=== PATIENT | female | born 1960 | race Caucasian/White ===

== ENCOUNTER 2020-02-08 15:17 | Outpatient (CLI) | payer OTHER, SELFPAY ==
[2020-02-08 16:13] LABS: Hematocrit 39.2 % (37.0-47.0); Hemoglobin 12.9 g/dL (12.0-15.0); Mean Corpuscular HGB Conc 32.9 g/dl (32-36); Mean Corpuscular Hemoglobin 30.5 pg (26-34); Mean Corpuscular Volume 92.7 fl (80-100); Platelet Count Result 392 k/mm3 (150-375); Red Blood Count 4.23 M/mm3 (4.2-5.4); Red Cell Distribution Width 12.8 % (11.5-14.5)
[2020-02-08 16:18] LABS: Add Urine Microscopic? YES; Appearance Urine Clear (Clear); Bilirubin Urine Negative (Negative); Blood Urine 1+ (Negative); Color Urine Straw (Yellow); Glucose Urine UA Negative (Negative); Ketones Urine Negative (Negative); Leukocyte Esterase Ur Negative LEU/UL (Negative); Nitrate Urine Negative (Negative); Protein Urine Negative (Negative); RBC Urine 0-2 /hpf (0-2); Squamous Epithelial Cell Urine Rare /hpf (Few); Urobilinogen Urine Negative mg/dL (<2.0); WBC Urine 0-3 /hpf
[2020-02-08 16:27] LABS: Alanine Aminotransferase 20 U/L (4-35); Albumin Level 4.6 g/dL (3.5-5.1); Alkaline Phosphatase 84 U/L (38-126); Aspartate Amino Transferase 30 U/L (14-36); Bilirubin,Total 1.1 mg/dL (0.2-1.3); Blood Urea Nitrogen 15 mg/dL (7-17); CRP < 0.5 mg/dL (<1.0); Calcium 9.1 mg/dL (8.4-10.2); Carbon Dioxide 28 mmol/L (22-30); Chloride 101 mmol/L (98-107); Estimated Glomerular Filt Rate > 60; Glucose 91 mg/dL (65-105); Potassium 3.3 mmol/L (3.4-5.0); Sodium 136 mmol/L (137-145)
[2020-02-08 17:15] LABS: Erythrocyte Sedimentation Rate 62 mm/hr (0-20)
[2020-02-11 23:06] LABS: NIL 0.04 IU/mL; Quantiferon TB Plus, 1T NEGATIVE (NEGATIVE); TB1-NIL 0.02 IU/mL; TB2-NIL 0.03 IU/mL
== END 2020-02-08 15:18 | disposition home or self-care (01) ==
PROVIDERS: PCP Internal Medicine; Visit Provider Internal Medicine
DX: L40.50 Arthropathic psoriasis, unspecified (principal); M19.90 Unspecified osteoarthritis, unspecified site
CPT/HCPCS: 36415; 80053; 81001; 85027; 85652; 86140; 86480

== ENCOUNTER 2020-02-15 10:13 | Outpatient (CLI) | payer OTHER, SELFPAY ==
--- NOTE | 2020-02-15 11:29 | ECG_ITS ---
Measurements Intervals [place] Rate: 75 P: 40 RI: 150 QRS: -11 QRSD: 98 T: 25 QT: 391 QTc: 439 Interpretive Statements SINUS RHYTHM DELAYED PRECORDIAL R/S TRANSITION BASELINE ARTIFACT- I, III, AVR, AVL, AVF, V5-V6 BORDERLINE ECG Electronically Signed On 02-15-2020 12:03:03 CDT by Joselito Franco D.O.
[2020-02-15 12:22] LABS: Basophils Absolute Auto 0.1 K/mm3 (0.0-0.1); Basophils Percent Auto 0.9 % (0.2-1.2); Eosinophils Absolute Auto 0.1 K/mm3 (0-0.3); Eosinophils Percent Auto 1.5 % (0-4.4); Hematocrit 40.7 % (37.0-47.0); Hemoglobin 13.3 g/dL (12.0-15.0); Immature Granulocyte Absolute 0.02 K/mm3 (0.00-0.031); Immature Granulocyte Percent A 0.3 % (0-0.5); Lymphocytes Absolute Auto 2.44 K/mm3 (0.9-3.2); Lymphocytes Percent Auto 37.1 % (18.3-44.2); Mean Corpuscular HGB Conc 32.7 g/dl (32-36); Mean Corpuscular Hemoglobin 30.3 pg (26-34); Mean Corpuscular Volume 92.7 fl (80-100); Mean Platelet Volume 8.8 fl (7.4-10.4); Monocytes Absolute Auto 0.7 K/mm3 (0.1-0.6); Monocytes Percent Auto 10.2 % (2.6-8.5); Neutrophils Absolute Auto 3.3 K/mm3 (1.3-6.7); Platelet Count Result 390 k/mm3 (150-375); Red Blood Count 4.39 M/mm3 (4.2-5.4); Red Cell Distribution Width 12.8 % (11.5-14.5); White Blood Count 6.6 K/mm3 (4.5-10.0)
[2020-02-15 12:33] LABS: Prothrombin Time 12.5 Seconds (11.1-14.7)
[2020-02-15 12:34] LABS: Partial Thromboplastin Time 29.9 SECONDS (22.3-36.8)
[2020-02-15 12:37] LABS: Albumin Level 4.5 g/dL (3.5-5.1); Blood Urea Nitrogen 22 mg/dL (7-17); Calcium 8.9 mg/dL (8.4-10.2); Carbon Dioxide 30 mmol/L (22-30); Chloride 98 mmol/L (98-107); Estimated Glomerular Filt Rate > 60; Glucose 102 mg/dL (65-105); Potassium 3.4 mmol/L (3.4-5.0); Sodium 137 mmol/L (137-145)
[2020-02-15 12:38] LABS: Add Urine Microscopic? YES; Appearance Urine Clear (Clear); Bilirubin Urine Negative (Negative); Blood Urine Negative (Negative); Color Urine Yellow (Yellow); Glucose Urine UA Negative (Negative); Ketones Urine Negative (Negative); Leukocyte Esterase Ur 1+ LEU/UL (Negative); Mucus Urine Rare /lpf; Nitrate Urine Negative (Negative); Protein Urine Negative (Negative); RBC Urine 0-2 /hpf (0-2); Specific Grav Ur 1.016 (1.001-1.035); Squamous Epithelial Cell Urine Occasional /hpf (Few); Urobilinogen Urine Negative mg/dL (<2.0); WBC Urine 0-3 /hpf
[2020-02-15 12:47] LABS: Hemoglobin A1C 5.3 % (<5.7); Urine Cotinine NEGATIVE
== END 2020-02-15 10:14 | disposition home or self-care (01) ==
PROVIDERS: PCP Internal Medicine; Visit Provider Orthopaedic Surgery
DX: Z01.818 Encounter for other preprocedural examination (principal); M17.12 Unilateral primary osteoarthritis, left knee
CPT/HCPCS: 36415; 80048; 80307; 81001; 82040; 83036; 85025; 85610; 85730; 86850; 86900; 86901; 87081; 93005

== ENCOUNTER 2020-02-19 02:05 | Outpatient (CLI) | payer OTHER, SELFPAY ==
[2020-02-19 23:05] LABS: SARS-CoV-2 RNA PCR Negative
== END 2020-02-19 02:06 | disposition home or self-care (01) ==
LOC: ANHCOVIDDT 02:05
PROVIDERS: PCP Internal Medicine; Visit Provider Orthopaedic Surgery
DX: Z01.812 Encounter for preprocedural laboratory examination (principal); Z11.59 Encounter for screening for other viral diseases
CPT/HCPCS: 87635; C9803; U0003

== ENCOUNTER 2020-02-22 00:44 | Day surgery (SDC) | payer OTHER, SELFPAY ==
[2020-02-15 11:12] VITALS: BP 142/90; PULSE 82; RESP 20; TEMP 36.9; O2SAT 97
[2020-02-15 11:31] VITALS: BMI 37.6
[2020-02-22] VITALS (13 sets, daily range): BP systolic 99–144; BP diastolic 51–81; PULSE 65–93; RESP 11–20; TEMP 36.1–36.9; O2SAT 94–100
--- NOTE | ~2020-02-22 | XR_ITS ---
EXAMINATION: XR knee LT 2V DATE: 02/22/2020 10:26 INDICATION: Total left knee arthroplasty. Postop. TECHNIQUE: 2 views of left knee were obtained. COMPARISON: Left knee radiographs 01/24/2020 FINDINGS: There is a total left knee arthroplasty in near-anatomic alignment. No fracture. There is a n osteophyte of the patella. There is gas in the knee joint and soft tissues, consistent with recent surgery. Anterior skin rosa are noted. IMPRESSION: 1. Total left knee arthroplasty in near-anatomic alignment. Reviewed, dictated and finalized at location A.
[2020-02-22] MEDS: LACTATED RINGERS 1,000 ML 30 ML IV CONT ×2 (06:15→09:46)
[2020-02-22] MEDS: ACETAMINOPHEN 500 MG TABLET 1000 MG PO (06:26)
[2020-02-22] MEDS: KETOROLAC 15 MG/ML VIAL (*BKC) IV PUSH (06:27)
[2020-02-22] MEDS: TRANEXAMIC ACID 1,000MG/ISO100 1,000 MG/100 ML BAG 200 MG IVPB (06:53)
--- NOTE | 2020-02-22 07:12 | WPDANESEPPF ---
Anes - Initial Pre Proc Eval Procedure: Operation Date: 02/22/20 07:30 Proposed Procedures p Left Total Knee Arthroplasty - Shankar Cali MD Date/Time: 02/22/20 07:12 Surgeon: Shankar Cali MD Pre Op Diagnosis: left knee djd Patient Data Age: 59 Gender: F Height: 1.52 m Weight: 86.8 kg Last Vital Signs Temp 36.9 C 02/22/20 06:50 Pulse 65 02/22/20 06:50 Resp 16 02/22/20 06:50 BP 144/80 H 02/22/20 06:50 Pulse Ox 99 02/22/20 06:50 Allergies Allergy/AdvReac Type Severity Reaction Status Date / Time codeine AdvReac Mild Rash Verified 02/22/20 05:58 Home Medications Medication Instructions Recorded Confirmed Type lisinopril 10 mg tablet 10 mg PO DAILY #90 tablet 09/03/19 02/22/20 Rx chlorhexidine gluconate 4 % 1 applic TOPICAL ONCE #237 ml 01/25/20 02/18/20 Rx topical liquid dexamethasone 1 drp OPHTHALMIC (EYE) QAM 02/15/20 02/22/20 History potassium chloride 10 meq PO DAILY 02/15/20 02/22/20 History ECG: Date of Service: 02/15/20 Procedure(s): CA 12 lead EKG Accession Number(s): [id number] cc: ~ Measurements Intervals [place] Rate: 75 P: 40 SC: 150 QRS: -11 QRSD: 98 T: 25 QT: 391 QTc: 439 Interpretive Statements SINUS RHYTHM DELAYED PRECORDIAL R/S TRANSITION BASELINE ARTIFACT- I, III, AVR, AVL, AVF, V5-V6 BORDERLINE ECG Electronically Signed On 02-15-2020 12:03:03 CDT by Joselito Franco D.O. 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 Questions were solicited and answers provided to the satisfaction of the patient/family/POA.
--- NOTE | 2020-02-22 07:16 | WPDANESPNB ---
Anes - Peripheral Nerve Block Date/Time: 02/22/20 07:16 I have discussed with the patient/family/POA the placement of a peripheral nerve block for post-operative pain management, including associated risks, benefits, complications, and side effects. Alternative methods of post-operative analgesia were detailed. Questions were solicited and answers provided to the satisfaction of the patient/family/POA. Time-Out: A pre-procedural Time-Out was completed immediately before starting the procedure and confirmed: Patient Identification, Site, Procedure, Patient Position and the Availability of Requisite Equipment. Clinical Indications: Acute post-operative pain management requested by the operative surgeon. Nerve Block Insertion Note Anes-nerve block: adductor canal left Patient position: supine Skin prep: chlorhexidine Needle: 22 gauge, stimulating, insulated echogenic needle. Needle length: 80 mm Technique: ultrasound Technique comment: in plane Injectate: bupivacaine 0.5% with epi 5 mcg/ml (20cc) Observations: tolerated well Complications: none Procedure start time:: 735 Procedure end time:: 740
--- NOTE | 2020-02-22 07:17 | WPDHPUPDATE1 ---
History and Physical Update Update Date/Time: 02/22/20 07:17 History and Physical has been reviewed, including an updated exam of the patient. There are NO changes in the patient's condition. Risks, benefits, and alternatives have been discussed and questions answered. Patient agrees to proceed with procedure.
[2020-02-22] MEDS: ceFAZolin 2 GM/D5W 50 ML 2 GM/50 ML BAG IVPB ×2 (07:42→16:46)
[2020-02-22] MEDS: GENTAMICIN BONE CEMENT REFOBACIN 1 EACH TOPICAL (08:29)
--- NOTE | 2020-02-22 09:40 | PM.OP ---
Procedure Note - Brief Procedure Note - Brief Date of procedure: 02/22/20 Pre-op diagnosis: left knee djd Post-op diagnosis: same Procedure performed: L TKA Anesthesia: GETA Surgeon: Shankar Cali MD Estimated blood loss (mL): 100 Complications: No immediate complications Condition: stable Disposition: PACU
--- NOTE | 2020-02-22 10:20 | SUR.PHASEI ---
0958 xrays left knee done.
--- NOTE | 2020-02-22 10:31 | OP_ITS ---
DATE OF PROCEDURE: 02/22/2020 PREOPERATIVE DIAGNOSIS: Left knee DJD. POSTOPERATIVE DIAGNOSIS: Left knee DJD. PROCEDURE: Left total knee arthroplasty. ANESTHESIA: General. COMPLICATIONS: None. INDICATIONS: This is a 59-year-old female with severe arthrosis of the left knee. She was in severe pain. She was indicated for left total knee arthroplasty. DESCRIPTION OF PROCEDURE: The patient was taken to the operating room in stable condition and placed in the supine position and general anesthesia was induced. The left lower extremity was prepped and draped sterilely from the toes to the thigh. A midline skin incision was made. Medial parapatellar arthrotomy was made. There was severe arthrosis in the all 3 compartments of the knee joint. An IM aston was placed in the femur. Distal femoral cut was made at 5 degrees of valgus removing approximately 9 mm of bone from the high side and then, the knee was sized to 60 and a cutting block was placed in line with Whitesides line and with the transepicondylar axis. Anterior, posterior, and chamfer cuts were made to the femur. Next, the IM aston was placed in the tibia. A transtibial cut was made removing approximately 10 mm of bone from the high side of the tibia. The tibia was planed to a smooth surface. Posterior osteophytes were removed from the posterior femoral condyles. A 71 tibial trial was placed in line with one-third medial aspect of the tibial tubercle and then, a 60 femoral trial was placed and then, eventually, a 16 CR poly was used as a spacer. The knee came out to full extension. There was good balance with varus and valgus stress in both flexion and extension. There was good anterior and posterior stability and the patella tracked without any tilt. The trial instrumentation was removed and then, a Biomet 71 mm tibial component and a 60 mm femoral component were tapped into place and cemented. Once the cement was hardened, the 16 CR poly trial was placed. Excess cement was removed from the periphery of the knee implant. The knee came out to full extension. There was good stability in varus and valgus stress. There was good anterior-posterior stability. The patella tracked without any tilt and there was no excessive rollback in flexion. The tourniquet was deflated. Bleeders were cauterized. The knee joint was irrigated with sterile water and Betadine for 3 minutes. The deep layers were approximated with #1 Vicryl, subcutaneous tissue with 2-0 Vicryl, and the skin with rosa. Wound was washed, placed a sterile dressing and the patient was extubated. Mary I MT: Dejan
[2020-02-22] MEDS: POTASSIUM CHLORIDE 10 MEQ TABLET.ER PO (14:21)
[2020-02-22] MEDS: oxyCODONE/ACETAMINOPHEN 5-325 MG TABLET 1 TABLET PO ×2 (14:24→21:57)
--- NOTE | 2020-02-22 14:34 | PC.NURSE ---
1102 Pt admitted from the OR /PAC today,resting in bed left leg donte wrap drsg is dry and intact. Oriented to the 2nd floor . Instructed to call for assistance as needed call light in reach.
--- NOTE | 2020-02-22 16:15 | WPDCN ---
Assessment and Plan Assessment and plan (1) Degenerative joint disease of left knee: Code(s): M17.12 - Unilateral primary osteoarthritis, left knee Status: Acute Assessment and Plan: Postoperative day 0, status post left total knee arthroplasty. Wound care and pain control will be deferred to Dr. Cali. DVT prophylaxis also deferred to primary service. (2) Essential hypertension: Code(s): I10 - Essential (primary) hypertension Status: Acute Assessment and Plan: Blood pressures were reviewed and they are stable postoperatively. Continue antihypertensives and monitor closely. (3) Psoriatic arthritis: Code(s): L40.50 - Arthropathic psoriasis, unspecified Status: Acute Assessment and Plan: Resume Otezla when okay with Dr. Cali. (4) Psoriasis: Code(s): L40.9 - Psoriasis, unspecified Status: Acute Assessment and Plan: Resume Otezla when okay with Dr. Cali. Additional Plan Thank you for allowing us to participate in this patient's care. Please do not hesitate to contact us with any questions. We will follow with you. Supervising physician for this medical consultation is Dr. Faviola Renee. HPI Data of Consult Date/Time: 02/22/20 16:15 Requesting Physician: Shankar Cali MD Primary Care Provider: Palomo Ga DO Consult Narrative Narrative: Isabel Ruvalcaba is a pleasant 59-year-old female whom the hospitalist service has been consulted for management of her medical conditions postoperatively. Her medical history is significant for degenerative joint disease, hypertension, psoriasis, and psoriatic arthritis. She has degenerative disease of both knees but has had increasing left knee pain due to a meniscal tear. Unfortunately, conservative outpatient treatment has not provided her with longstanding relief and thus she elected for replacement today. Her surgery was performed under general anesthesia with a regional block. No immediate complications were documented an estimated blood loss was 100 mL. At the time my evaluation she is experiencing an aching pain at the operative site as she rates 7/10. She had minimal pain early on secondary to regional block. Other than pain she has no real complaints. She has been up to the chair and ambulating with a walker with physical therapy without issue. She denies postoperative fever, chills, chest pain, shortness of breath, nausea, vomiting, paresthesias, skin color, and temperature changes distal to the surgical site. With regards her chronic medical conditions, she believes that her type retention is well controlled on home medications. She has been on Otezla for psoriasis and psoriatic arthritis, but was taken off of that in anticipation of this surgery. Immediately after stopping that drug she had a significant eruption of scalp psoriasis but that has drastically improved. Review of Systems Review of Systems: Narrative: Twelve systems were reviewed with pertinent positives and negatives as per HPI. No fever, chills, or sweats. No recent cold or flu symptoms. She denies recent travel and sick contacts. No cough or shortness of breath. No exertional chest pain. No history of venous thromboembolism. Except as documented, all other systems were reviewed and are negative. [facility] Past Medical History Medical History (Updated 02/22/20 @ 23:48 by Bianka Ba PA-C) Anxiety Degenerative joint disease Hypertension Post-menopausal Psoriasis Psoriatic arthritis Torn meniscus Left knee. Surgical History Surgical History (Updated 02/22/20 @ 23:45 by Bianka Ba PA-C) History o
[2020-02-22] MEDS: CELECOXIB 200 MG CAPSULE PO (16:45)
[2020-02-22] MEDS: DOCUSATE SODIUM 100 MG CAPSULE PO (16:46)
[2020-02-22] MEDS: MORPHINE SULFATE 4 MG/ML INJ IV PUSH (19:34)
[2020-02-22] MEDS: FAMOTIDINE 20 MG TABLET PO (22:06)
[2020-02-22] MEDS: SODIUM CHLORIDE 0.9% IV 1,000 ML 125 ML IV CONT (22:40)
[2020-02-23 02:00] VITALS: BP 113/53; PULSE 60; RESP 18; TEMP 36.2; O2SAT 97
[2020-02-23] MEDS: oxyCODONE/ACETAMINOPHEN 5-325 MG TABLET 1 TABLET PO ×3 (03:17→14:06)
[2020-02-23 05:25] LABS: Basophils Percent Auto 0.3 % (0.2-1.2); Eosinophils Percent Auto 0.2 % (0-4.4); Hemoglobin 9.8 g/dL (12.0-15.0); Immature Granulocyte Absolute 0.06 K/mm3 (0.00-0.031); Immature Granulocyte Percent A 0.5 % (0-0.5); Lymphocytes Percent Auto 22.7 % (18.3-44.2); Mean Corpuscular HGB Conc 31.6 g/dl (32-36); Mean Corpuscular Volume 94.8 fl (80-100); Mean Platelet Volume 8.5 fl (7.4-10.4); Monocytes Absolute Auto 1.4 K/mm3 (0.1-0.6); Monocytes Percent Auto 11.6 % (2.6-8.5); Neutrophils Absolute Auto 7.7 K/mm3 (1.3-6.7); Neutrophils Percent Auto 64.7 % (45.5-73.1); Platelet Count Result 279 k/mm3 (150-375); Red Blood Count 3.27 M/mm3 (4.2-5.4); Red Cell Distribution Width 12.9 % (11.5-14.5); White Blood Count 11.9 K/mm3 (4.5-10.0)
[2020-02-23 05:37] LABS: Anion Gap 9.3 mmol/L (7-16); Blood Urea Nitrogen 14 mg/dL (7-17); Calcium 8.1 mg/dL (8.4-10.2); Carbon Dioxide 28 mmol/L (22-30); Chloride 104 mmol/L (98-107); Estimated CRCL calculation 84 ml/min; Estimated Glomerular Filt Rate > 60; Glucose 103 mg/dL (65-105); Potassium 4.3 mmol/L (3.4-5.0); Sodium 137 mmol/L (137-145)
[2020-02-23 05:57] VITALS: BP 108/62; PULSE 75; RESP 18; TEMP 36.2; O2SAT 98
[2020-02-23 07:28] VITALS: BP 107/63; PULSE 76; RESP 20; TEMP 36.4; O2SAT 96
--- NOTE | 2020-02-23 08:00 | PC.NURSE ---
Patient stated that she took her home dexamethasone eye drops before shift change. I will notify Dr. Baires that the patient took her eye drops before I entered the room to assess her.
[2020-02-23] MEDS: ceFAZolin 2 GM/D5W 50 ML 2 GM/50 ML BAG IVPB ×2 (08:08)
[2020-02-23] MEDS: POTASSIUM CHLORIDE 10 MEQ TABLET.ER PO (08:08)
[2020-02-23] MEDS: ASPIRIN 325 MG ENTERIC TABLET 650 MG PO (08:09)
[2020-02-23] MEDS: DOCUSATE SODIUM 100 MG CAPSULE PO ×2 (08:10→16:02)
[2020-02-23] MEDS: lisinopriL 10 MG TABLET PO (08:10)
[2020-02-23] MEDS: FAMOTIDINE 20 MG TABLET PO (08:10)
[2020-02-23] MEDS: CELECOXIB 200 MG CAPSULE PO ×2 (08:10→16:02)
--- NOTE | 2020-02-23 08:10 | WPDANESPN ---
Anes - Prog Note Post-Op Date/Time: 02/23/20 08:10 Vital Signs: Last Vital Signs Temp 36.2 C L 02/23/20 05:57 Pulse 75 02/23/20 05:57 Resp 18 02/23/20 05:57 BP 108/62 02/23/20 05:57 Pulse Ox 98 02/23/20 05:57 I/O: Intake & Output 02/22/20 02/23/20 02/23/20 23:59 07:59 15:59 Intake Total 290 1175 Output Total 1600 900 Balance -1310 275 Laboratory Tests 02/23/20 05:13 02/23/20 05:13 02/23/20 02/23/20 05:13 05:13 WBC 11.9 H RBC 3.27 L Hgb 9.8 L D Hct 31.0 L MCV 94.8 MCH 30.0 MCHC 31.6 L RDW 12.9 Plt Count 279 MPV 8.5 Immature Gran % (Auto) 0.5 Neut % (Auto) 64.7 Lymph % (Auto) 22.7 [place] % (Auto) 11.6 H Eos % (Auto) 0.2 Baso % (Auto) 0.3 Lymph # (Auto) 2.70 [place] # (Auto) 1.4 H Eos # (Auto) 0.0 Baso # (Auto) 0.0 Abs Immat Gran (auto) 0.06 H Absolute Neuts (auto) 7.7 H Absolute Nucleated RBC 0.0 Nucleated RBC % 0.0 Sodium 137 Potassium 4.3 Chloride 104 Carbon Dioxide 28 Anion Gap 9.3 BUN 14 D Creatinine 0.60 L Estim Creat Clear Calc 84 Estimated GFR > 60 Glucose 103 Calcium 8.1 L Patient Feedback: Patient satisfied with anesthetic care.
[2020-02-23] MEDS: MORPHINE SULFATE 4 MG/ML INJ IV PUSH (10:31)
[2020-02-23 11:20] VITALS: O2SAT 94
[2020-02-23 11:28] VITALS: BP 103/54; PULSE 72; RESP 20; TEMP 36.5; O2SAT 92
--- NOTE | 2020-02-23 16:23 | PM.PNORT ---
Progress Note: A&P Additional Plan pod 1 doing well. recommend cont PT Subjective Subjective Date/Time Seen: 02/23/20 16:23 pod 1 doing well. doing well with pt. no calf pain Exam Extrem: Other: vss afebrile dressing dry nv intact neg homans sign Objective Data Vital Signs Vital Signs: Vital Signs - 24 hr 02/22/20 21:52 02/23/20 02:00 02/23/20 05:57 Temperature 36.4 C L 36.2 C L 36.2 C L Pulse Rate 71 60 75 Respiratory Rate 20 18 18 Blood Pressure 118/59 L 113/53 L 108/62 Pulse Oximetry 95 97 98 02/23/20 07:28 02/23/20 11:20 02/23/20 11:28 Temperature 36.4 C L 36.5 C Pulse Rate 76 72 Respiratory Rate 20 20 Blood Pressure 107/63 103/54 L Pulse Oximetry 96 94 92 Intake/Output Intake/Output: Intake & Output 02/20/20 02/21/20 02/22/20 02/23/20 23:59 23:59 23:59 23:59 Intake Total 1180 1625 Output Total 1600 900 Balance -420 725 Meds/Results Medications: Active Medications Generic Name Dose Route Start Last Admin Trade Name Freq PRN Reason Stop Dose Admin Acetaminophen 1,000 mg 02/22/20 09:42 Tylenol Tablet PO Q6H PRN Mild Pain (1-3) Aspirin 650 mg 02/23/20 09:00 02/23/20 08:09 Aspirin Ec PO 650 mg DAILY TING Administration Celecoxib 200 mg 02/22/20 17:00 02/23/20 16:02 Celebrex PO 200 mg BIDWM TING Administration Dexamethasone 1 drop 02/24/20 09:00 Decadron 0.1% Ophth Soln EACH EYE 03/24/20 09:01 QAM TING Diazepam 5 mg 02/22/20 09:42 Valium Po PO Q8H PRN Spasms Diphenhydramine HCl 25 mg 02/22/20 09:42 Benadryl Inj IV PUSH Q6H PRN Itching Docusate Sodium 100 mg 02/22/20 17:00 02/23/20 16:02 Colace Capsule PO 100 mg BID TING Administration Famotidine 20 mg 02/22/20 21:00 02/23/20 08:10 Pepcid PO 20 mg Q12HR TING Administration Lisinopril 10 mg 02/23/20 09:00 02/23/20 08:10 Prinivil PO 10 mg DAILY TING Administration Morphine Sulfate 4 mg 02/22/20 09:42 02/23/20 10:31 Morphine Sulfate Inj IV PUSH 4 mg Q2H PRN Administration Breakthrough pain rated 7-10 Naloxone HCl 0.1 mg 02/22/20 09:42 Narcan IV PUSH Q2M PRN Opiate Reversal Ondansetron HCl 4 mg 02/22/20 09:42 Zofran Inj IV PUSH Q4H PRN Nausea And Vomiting Oxycodone/Acetaminophen 1 tablet 02/22/20 09:42 02/23/20 14:06 Percocet 5-325 Mg PO 1 tablet Q4H PRN Administration Pain Rated 4-6 Potassium Chloride 10 meq 02/22/20 11:15 02/23/20 08:08 Kcl Tablet PO 10 meq DAILY TING Administration Radiology Results: ITS Impressions Knee X-Ray 02/22/20 10:33 IMPRESSION: 1. Total left knee arthroplasty in near-anatomic alignment. Labs Labs: Laboratory Results - last 24 hr 02/23/20 02/23/20 05:13 05:13 WBC 11.9 H RBC 3.27 L Hgb 9.8 L D Hct 31.0 L MCV 94.8 MCH 30.0 MCHC 31.6 L RDW 12.9 Plt Count 279 MPV 8.5 Immature Gran % (Auto) 0.5 Neut % (Auto) 64.7 Lymph % (Auto) 22.7 [place] % (Auto) 11.6 H Eos % (Auto) 0.2 Baso % (Auto) 0.3 Lymph # (Auto) 2.70 [place] # (Auto) 1.4 H Eos # (Auto) 0.0 Baso # (Auto) 0.0 Abs Immat Gran (auto) 0.06 H Absolute Neuts (auto) 7.7 H Absolute Nucleated RBC 0.0 Nucleated RBC % 0.0 Sodium 137 Potassium 4.3 Chloride 104 Carbon Dioxide 28 Anion Gap 9.3 BUN 14 D Creatinine 0.60 L Estim Creat Clear Calc 84 Estimated GFR > 60 Glucose 103 Calcium 8.1 L
--- NOTE | 2020-02-23 16:41 | P.DS_ITS ---
DS: Admitting Diagnosis Admitting Diagnosis Admitting Diagnosis: Unilateral primary osteoarthritis, left knee DS: Discharge Diagnosis Discharge Diagnosis (1) Degenerative joint disease of left knee: Code(s): M17.12 - Unilateral primary osteoarthritis, left knee Status: Acute Assessment and Plan: SC HOME DS: Summary Time Spent with Patient Time attestation: providing and/or coordinating discharge services: 15 MIN DS: Data Data Completed and Pending Labs on day of discharge: Labs from last 24 hours 02/23/20 02/23/20 05:13 05:13 WBC 11.9 H RBC 3.27 L Hgb 9.8 L D Hct 31.0 L MCV 94.8 MCH 30.0 MCHC 31.6 L RDW 12.9 Plt Count 279 MPV 8.5 Immature Gran % (Auto) 0.5 Neut % (Auto) 64.7 Lymph % (Auto) 22.7 [place] % (Auto) 11.6 H Eos % (Auto) 0.2 Baso % (Auto) 0.3 Lymph # (Auto) 2.70 [place] # (Auto) 1.4 H Eos # (Auto) 0.0 Baso # (Auto) 0.0 Abs Immat Gran (auto) 0.06 H Absolute Neuts (auto) 7.7 H Absolute Nucleated RBC 0.0 Nucleated RBC % 0.0 Sodium 137 Potassium 4.3 Chloride 104 Carbon Dioxide 28 Anion Gap 9.3 BUN 14 D Creatinine 0.60 L Estim Creat Clear Calc 84 Estimated GFR > 60 Glucose 103 Calcium 8.1 L Discharge Plan Discharge Patient Disposition: Home Health Service Discharge Instructions: Per Care Coordination Patient is arranged to have [facility] retirement, physical therapy, and occupational therapy. [phone]. RN please call [facility] to notify of discharge. TAKE 2 ASPIRIN 325 MG TABLETS FOR 3 WEEKS FOR BLOOD CLOT PREVENTION PROPHILAXIS Patient Instructions: Antibiotic Form, Joint Replacement Surgery (DC), Knee Replacement (DC) Stand Alone Forms: General Discharge Information Follow-up/Referrals: Shankar Cali MD [Physician] - 3 Weeks Discharge Medications: New hydrocodone-acetaminophen [[place]] 5-325 mg tablet 1 tablet PO Q6H PRN (Reason: pain) Qty: 60 RF: 0 Continued lisinopril 10 mg tablet 10 mg PO DAILY Qty: 90 RF: 1 potassium chloride 10 mEq Capsule, Extended Release 10 meq PO DAILY RF: 0 dexamethasone 0.1 % Drops,Suspension 1 drp OPHTHALMIC (EYE) QAM RF: 0 No Action chlorhexidine gluconate [Hibiclens] 4 % liquid 1 applic TOPICAL ONCE Qty: 237 RF: 0
== END 2020-02-23 18:50 | disposition home health service (06) ==
LOC: ANHSURGERY 05:51 → ANH2MED 10:43
PROVIDERS: PCP Internal Medicine; Visit Provider Orthopaedic Surgery
PROC: (CPT 27447; principal; 2020-02-22 07:30)
DX: M17.12 Unilateral primary osteoarthritis, left knee (principal); G89.18 Other acute postprocedural pain; I10 Essential (primary) hypertension; L40.50 Arthropathic psoriasis, unspecified; L40.9 Psoriasis, unspecified; F41.9 Anxiety disorder, unspecified; E66.9 Obesity, unspecified; Z68.37 Body mass index [BMI] 37.0-37.9, adult
CPT/HCPCS: 27447; 64447; 36415; 73560; 80048; 85025; 97110; 97116; 97161; 97165; A9270; C1713; C1776; J0171; J0690; J1100; J1170; J1885; J2250; J2270; J2405; J2704; J2795; J3010; J7030; J7120

== ENCOUNTER 2020-10-10 12:55 | Outpatient (CLI) | payer OTHER, SELFPAY ==
[2020-10-10 13:53] LABS: Basophils Absolute Auto 0.1 K/mm3 (0.0-0.1); Basophils Percent Auto 0.6 % (0.2-1.2); Eosinophils Absolute Auto 0.1 K/mm3 (0-0.3); Eosinophils Percent Auto 1.7 % (0-4.4); Hematocrit 40.5 % (37.0-47.0); Hemoglobin 13.2 g/dL (12.0-15.0); Immature Granulocyte Absolute 0.03 K/mm3 (0.00-0.031); Immature Granulocyte Percent A 0.4 % (0-0.5); Lymphocytes Absolute Auto 3.29 K/mm3 (0.9-3.2); Lymphocytes Percent Auto 42.5 % (18.3-44.2); Mean Corpuscular HGB Conc 32.6 g/dl (32-36); Mean Corpuscular Hemoglobin 30.3 pg (26-34); Mean Corpuscular Volume 93.1 fl (80-100); Mean Platelet Volume 8.7 fl (7.4-10.4); Monocytes Absolute Auto 0.7 K/mm3 (0.1-0.6); Monocytes Percent Auto 8.6 % (2.6-8.5); Neutrophils Absolute Auto 3.6 K/mm3 (1.3-6.7); Neutrophils Percent Auto 46.2 % (45.5-73.1); Platelet Count Result 392 k/mm3 (150-375); Red Blood Count 4.35 M/mm3 (4.2-5.4); Red Cell Distribution Width 12.7 % (11.5-14.5); White Blood Count 7.8 K/mm3 (4.5-10.0)
[2020-10-10 13:55] LABS: Alanine Aminotransferase 22 U/L (4-35); Albumin Level 4.4 g/dL (3.5-5.1); Alkaline Phosphatase 74 U/L (38-126); Anion Gap 5 mmol/L (8-16); Aspartate Amino Transferase 35 U/L (14-36); Bilirubin,Total 0.6 mg/dL (0.2-1.3); Blood Urea Nitrogen 27 mg/dL (7-17); Calcium 9.3 mg/dL (8.4-10.2); Carbon Dioxide 31 mmol/L (22-30); Chloride 104 mmol/L (98-107); Cholesterol 260 mg/dL (0-200); Estimated Glomerular Filt Rate > 60; Glucose 103 mg/dL (65-105); HDL Direct 65 mg/dL; Potassium 4.2 mmol/L (3.4-5.0); Sodium 140 mmol/L (137-145); Triglycerides 217 mg/dL (<150)
[2020-10-10 14:07] LABS: LDL Cholesterol Direct 140 mg/dL
== END 2020-10-10 12:56 | disposition home or self-care (01) ==
LOC: ANHLAB 12:58
PROVIDERS: PCP Internal Medicine; Visit Provider Nurse Practitioner
DX: L40.50 Arthropathic psoriasis, unspecified (principal); I10 Essential (primary) hypertension
CPT/HCPCS: 36415; 80053; 80061; 85025

== ENCOUNTER → 2020-12-08 04:01 | Outpatient (CLI) | payer OTHER, SELFPAY ==
[2020-12-08 19:37] LABS: SARS-CoV-2 RNA PCR Negative
== END ==
PROVIDERS: PCP Internal Medicine; Visit Provider Internal Medicine Gastroenterology
DX: R68.89 Other general symptoms and signs (principal); Z20.822 Contact with and (suspected) exposure to COVID-19
CPT/HCPCS: C9803; U0003; U0005

== ENCOUNTER 2020-12-11 01:57 | Day surgery (SDC) | payer OTHER, SELFPAY ==
[2020-11-30 12:56] VITALS: BMI 37.3
[2020-12-11 07:23] VITALS: BP 147/98; PULSE 79; RESP 17; TEMP 36.3; O2SAT 98; BMI 40.5
[2020-12-11] MEDS: LACTATED RINGERS 1,000 ML 150 ML IV CONT (07:32)
--- NOTE | 2020-12-11 08:10 | WPDANESEPPF ---
Anes - Initial Pre Proc Eval Procedure: Operation Date: 12/11/20 08:30 Proposed Procedures p Colonoscopy - Beau Ruiz MD Date/Time: 12/11/20 08:10 Surgeon: Beau Ruiz MD Pre Op Diagnosis: positive cologuard Patient Data Age: 60 Gender: F Height: 4 ft 11 in Weight: 91 kg Last Vital Signs Temp 97.3 F L 12/11/20 07:23 Pulse 79 12/11/20 07:23 Resp 17 12/11/20 07:23 BP 147/98 H 12/11/20 07:23 Pulse Ox 98 12/11/20 07:23 Allergies Allergy/AdvReac Type Severity Reaction Status Date / Time codeine AdvReac Mild Rash Verified 12/11/20 07:21 Home Medications Medication Instructions Recorded Confirmed Type dexamethasone 1 drp OPHTHALMIC (EYE) QAM 02/15/20 12/11/20 History lisinopril 10 mg tablet 10 mg PO DAILY #90 tablet 10/25/20 12/11/20 Rx Patient hx anesthesia problems: none Family hx anesthesia problems: none PMFSH Past Medical History Medical History (Updated 11/29/20 @ 11:01 by Sherri Ku MA) Aftercare following left knee joint replacement surgery Anxiety Degenerative joint disease Hypertension Positive colorectal cancer screening using Cologuard test Post-menopausal Psoriasis Psoriatic arthritis Right knee pain Torn meniscus Left knee. Surgical History Surgical History History of arthroplasty of left knee (02/22/20) History of section History of corneal transplant Left eye. Family History Family History Sibling Patient's sister is in good health Patient's brother is in good health Father Family history of lung cancer Family history of malignant neoplasm of brain Patient's father is Mother Family history of emphysema Patient's mother is Other Diabetes mellitus Family history of arthritis Family history of malignant neoplasm Social History Social History Social History: Surrogate decision maker: Callum Ruvalcaba, izabela. Code status: Full code. Smoking status: Never smoker Alcohol intake: current Drinks per week: 4 Substance use: never Substance use type: does not use Living arrangements: with family Additional living arrangements comments: Lives in [place] with her son, [id number], and grandchildren. Gender identity (if verbalized by the patient): Female Spiritual care concerns: No Anes - Eval Final PreProcedure Day of Procedure 12/11/20 08:10 Patient weight: morbidly obese Heart: regular rate and rhythm Lungs: clear to auscultation Airway: Mallampati scale class II Neurological: alert and oriented Last oral intake: >/= 8 hours ASA classification: III Emergent: no Anesthetic plan: proceed Anesthesia type and monitoring: general GIVS and standard monitoring Informed Consent: The patient's anesthetic plan and its attendant risks and benefits were discussed with the patient/family/POA. Questions were solicited and answers provided to the satisfaction of the patient/family/POA.
--- NOTE | 2020-12-11 08:25 | PM.HPGS ---
History of Present Illness History of Present Illness Consent: Risks, benefits, and alternatives have been discussed and questions answered. Patient agrees to proceed with procedure. Chief complaint: positive cologuard Narrative: Isabel Ruvalcaba is a 60 year old female here for first colonoscopy, had positive cologuard Review of Systems Constitutional: Constitutional: Denies headache(s) and Denies weakness Eyes: Eyes: Denies blurry vision ENT: Reports Normal hearing present, Denies headache(s) and Denies neck pain Cardiovascular: Cardiovascular: Denies chest pain and Denies dyspnea Respiratory: Respiratory: Denies dyspnea Gastrointestinal: Gastrointestinal: Reports no additional gastrointestinal complaints Genitourinary: Genitourinary: Denies dysuria Musculoskeletal: Musculoskeletal: Denies neck pain Integumentary/Breasts: Skin/Breast: Denies dry skin Neurologic: Reports Normal hearing present, Denies headache(s) and Denies weakness Psychiatric: Psychiatric: Denies anxiety Endocrine: Endocrine: Denies change in body appearance Hematologic/Lymphatic: Hematologic/Lymphatic: Denies easy bleeding Allergic/Immunologic: Allergic/Immunologic: Denies urticaria PMFSH Past Medical History Medical History (Updated 11/29/20 @ 11:01 by Sherri Ku MA) Aftercare following left knee joint replacement surgery Anxiety Degenerative joint disease Hypertension Positive colorectal cancer screening using Cologuard test Post-menopausal Psoriasis Psoriatic arthritis Right knee pain Torn meniscus Left knee. Surgical History Surgical History History of arthroplasty of left knee (02/22/20) History of section History of corneal transplant Left eye. Family History Family History Sibling Patient's sister is in good health Patient's brother is in good health Father Family history of lung cancer Family history of malignant neoplasm of brain Patient's father is Mother Family history of emphysema Patient's mother is Other Diabetes mellitus Family history of arthritis Family history of malignant neoplasm Social History Social History Social History: Surrogate decision maker: Callum Ruvalcaba, izabela. Code status: Full code. Smoking status: Never smoker Alcohol intake: current Drinks per week: 4 Substance use: never Substance use type: does not use Living arrangements: with family Additional living arrangements comments: Lives in [place] with her son, [id number], and grandchildren. Gender identity (if verbalized by the patient): Female Spiritual care concerns: No Meds Home Medications and Allergies Home Medications Medication Instructions Recorded Confirmed Type dexamethasone 1 drp OPHTHALMIC (EYE) QAM 02/15/20 12/11/20 History lisinopril 10 mg tablet 10 mg PO DAILY #90 tablet 10/25/20 12/11/20 Rx Allergies Allergy/AdvReac Type Severity Reaction Status Date / Time codeine AdvReac Mild Rash Verified 12/11/20 07:21 Vital Signs Vital Signs - 24 hr 12/11/20 07:23 Temperature 97.3 F L Pulse Rate 79 Respiratory Rate 17 Blood Pressure 147/98 H Pulse Oximetry 98 Exam Const: General: comfortable and no acute distress HENMT: General nose exam: Normal nares present Eyes: General: appearance normal, both eyes and all related structures Neck: Neck: no JVD Resp: Auscultation: clear to auscultation bilaterally Cardio: Rate: regular rate Rhythm: regular rhythm GI: Inspection: non-distended GI Palp: Yes Soft to palpation Skin: General skin exam: normal color Neuro: General: gait normal Speech: normal speech Extrem: General: normal to inspection Psych: Mental Status: mental status grossly normal Assessment and Plan Assessment
[2020-12-11 08:51] VITALS: BP 126/88; PULSE 87; RESP 21; O2SAT 98
[2020-12-11 09:01] VITALS: BP 101/67; PULSE 65; RESP 21; O2SAT 98
[2020-12-11 09:11] VITALS: BP 128/85; PULSE 71; RESP 20; O2SAT 99
== END 2020-12-11 09:25 | disposition home or self-care (01) ==
PROVIDERS: PCP Internal Medicine; Visit Provider Internal Medicine Gastroenterology
PROC: 0DJD8ZZ Inspection of Lower Intestinal Tract, Via Natural or Artificial Opening Endoscopic (ICD-10-PCS; CPT 45378; principal; 2020-12-11 08:30)
DX: R19.5 Other fecal abnormalities (principal); D12.3 Benign neoplasm of transverse colon; D12.0 Benign neoplasm of cecum; Z96.652 Presence of left artificial knee joint; F41.9 Anxiety disorder, unspecified; I10 Essential (primary) hypertension; L40.50 Arthropathic psoriasis, unspecified; Z94.7 Corneal transplant status; K57.30 Diverticulosis of large intestine without perforation or abscess without bleeding
CPT/HCPCS: 45385; 45380; 88305; J2704; J7120

== ENCOUNTER 2021-03-19 09:21 | Outpatient (CLI) | payer OTHER, SELFPAY ==
[2021-03-19 10:20] LABS: Hematocrit 42.3 % (37.0-47.0); Hemoglobin 13.6 g/dL (12.0-15.0); Mean Corpuscular HGB Conc 32.2 g/dl (32-36); Mean Corpuscular Hemoglobin 29.9 pg (26-34); Mean Platelet Volume 8.5 fl (7.4-10.4); Platelet Count Result 393 k/mm3 (150-375); Red Blood Count 4.55 M/mm3 (4.2-5.4); Red Cell Distribution Width 12.5 % (11.5-14.5)
[2021-03-19 10:28] LABS: Cholesterol 319 mg/dL (0-200); HDL Direct 81 mg/dL; Triglycerides 142 mg/dL (<150)
[2021-03-19 10:36] LABS: Alanine Aminotransferase 23 U/L (4-35); Albumin Level 4.7 g/dL (3.5-5.1); Alkaline Phosphatase 83 U/L (38-126); Anion Gap 9 mmol/L (8-16); Aspartate Amino Transferase 31 U/L (14-36); Bilirubin,Total 1.4 mg/dL (0.2-1.3); Blood Urea Nitrogen 23 mg/dL (7-17); CRP < 0.5 mg/dL (<1.0); Calcium 9.3 mg/dL (8.4-10.2); Carbon Dioxide 23 mmol/L (22-30); Chloride 102 mmol/L (98-107); Estimated Glomerular Filt Rate > 60; Glucose 115 mg/dL (65-110); Potassium 4.5 mmol/L (3.4-5.0); Sodium 134 mmol/L (137-145)
[2021-03-19 10:37] LABS: Add Urine Microscopic? YES; Appearance Urine Clear (Clear); Bilirubin Urine Negative (Negative); Blood Urine 1+ (Negative); Color Urine Yellow (Yellow); Glucose Urine UA Negative (Negative); Ketones Urine Trace mg/dL (Negative); Leukocyte Esterase Ur Negative LEU/UL (Negative); Nitrate Urine Negative (Negative); Protein Urine 1+ mg/dL (Negative); RBC Urine 0-2 /hpf (0-2); Specific Grav Ur 1.021 (1.001-1.035); Squamous Epithelial Cell Urine Rare /hpf (Few); Urobilinogen Urine Negative mg/dL (<2.0); WBC Urine 0-3 /hpf
[2021-03-19 10:40] LABS: LDL Cholesterol Direct 168 mg/dL
[2021-03-19 10:58] LABS: Thyroid Stimulating Hormone 0.869 uIU/mL (0.465-4.680)
[2021-03-19 11:14] LABS: Erythrocyte Sedimentation Rate 19 mm/hr (0-20)
== END 2021-03-19 09:22 | disposition home or self-care (01) ==
PROVIDERS: PCP Internal Medicine; Referring Provider Clinical Nurse Specialist; Visit Provider Internal Medicine
DX: E78.5 Hyperlipidemia, unspecified (principal); L40.50 Arthropathic psoriasis, unspecified; I10 Essential (primary) hypertension; M19.90 Unspecified osteoarthritis, unspecified site
CPT/HCPCS: 36415; 80053; 80061; 81001; 84443; 85027; 85652; 86140

== ENCOUNTER 2021-05-15 07:42 | Outpatient (CLI) | payer OTHER, SELFPAY ==
[2021-05-15 08:50] LABS: Basophils Absolute Auto 0.1 K/mm3 (0.0-0.1); Eosinophils Absolute Auto 0.2 K/mm3 (0-0.3); Eosinophils Percent Auto 2.8 % (0-4.4); Hemoglobin 13.2 g/dL (12.0-15.0); Immature Granulocyte Absolute 0.01 K/mm3 (0.00-0.031); Immature Granulocyte Percent A 0.2 % (0-0.5); Lymphocytes Absolute Auto 2.54 K/mm3 (0.9-3.2); Lymphocytes Percent Auto 41.2 % (18.3-44.2); Mean Corpuscular HGB Conc 32.2 g/dl (32-36); Mean Corpuscular Hemoglobin 31.1 pg (26-34); Mean Corpuscular Volume 96.5 fl (80-100); Mean Platelet Volume 8.6 fl (7.4-10.4); Monocytes Absolute Auto 0.6 K/mm3 (0.1-0.6); Monocytes Percent Auto 9.9 % (2.6-8.5); Neutrophils Absolute Auto 2.8 K/mm3 (1.3-6.7); Neutrophils Percent Auto 44.9 % (45.5-73.1); Platelet Count Result 353 k/mm3 (150-375); Red Blood Count 4.25 M/mm3 (4.2-5.4); Red Cell Distribution Width 12.8 % (11.5-14.5); White Blood Count 6.2 K/mm3 (4.5-10.0)
[2021-05-15 08:52] LABS: Add Urine Microscopic? NO; Appearance Urine Clear (Clear); Bilirubin Urine Negative (Negative); Blood Urine Negative (Negative); Color Urine Yellow (Yellow); Glucose Urine UA Negative (Negative); Ketones Urine Negative (Negative); Leukocyte Esterase Ur Negative LEU/UL (Negative); Nitrate Urine Negative (Negative); Protein Urine Negative (Negative); Specific Grav Ur 1.018 (1.001-1.035); Urobilinogen Urine Negative mg/dL (<2.0)
[2021-05-15 09:01] LABS: Albumin Level 4.5 g/dL (3.5-5.1); Anion Gap 10 mmol/L (8-16); Blood Urea Nitrogen 17 mg/dL (7-17); Calcium 9.3 mg/dL (8.4-10.2); Carbon Dioxide 27 mmol/L (22-30); Chloride 106 mmol/L (98-107); Estimated Glomerular Filt Rate > 60; Glucose 103 mg/dL (65-110); Sodium 143 mmol/L (137-145)
[2021-05-15 09:05] LABS: Hemoglobin A1C 5.3 % (<5.7)
[2021-05-15 09:17] LABS: Urine Cotinine NEGATIVE
[2021-05-15 10:36] LABS: Partial Thromboplastin Time 31.8 SECONDS (22.3-36.8)
== END 2021-05-15 07:43 | disposition home or self-care (01) ==
LOC: ANHSURGERY 07:45
PROVIDERS: PCP Internal Medicine; Visit Provider Orthopaedic Surgery
DX: Z01.812 Encounter for preprocedural laboratory examination (principal); M17.11 Unilateral primary osteoarthritis, right knee
CPT/HCPCS: 80048; 80307; 81003; 82040; 83036; 85025; 85610; 85730; 87081

== ENCOUNTER 2021-05-29 00:17 | Day surgery (SDC) | payer OTHER, SELFPAY ==
[2021-03-15 13:56] VITALS: BMI 41.5
[2021-05-15 07:53] VITALS: BMI 39.8
[2021-05-15 08:34] VITALS: BP 154/83; PULSE 73; RESP 16; TEMP 36.8; O2SAT 97
[2021-05-29] VITALS (14 sets, daily range): BP systolic 98–145; BP diastolic 69–83; PULSE 79–92; RESP 12–20; TEMP 36.4–36.6; O2SAT 93–100
--- NOTE | ~2021-05-29 | XR_ITS ---
EXAMINATION: XR knee RT 2V DATE: 05/29/2021 13:39 INDICATION: Postoperative evaluation following right total knee arthroplasty. TECHNIQUE: Anteroposterior and lateral views of the right knee were obtained. COMPARISON: None. FINDINGS: Right total knee arthroplasty without patellar resurfacing appears well seated and in near anatomic a lignment. No fractures identified. The sides of the proximal distal poles of the patella. Skin stapl es and expected postoperative subcutaneous and intra-articular gas. IMPRESSION: 1. Right total knee arthroplasty, negative for postoperative purposes. Reviewed, dictated and finalized at location A.
--- NOTE | 2021-05-29 07:35 | WPDHPUPDATE1 ---
History and Physical Update Update Date/Time: 05/29/21 07:35 History and Physical has been reviewed, including an updated exam of the patient. There are NO changes in the patient's condition. Risks, benefits, and alternatives have been discussed and questions answered. Patient agrees to proceed with procedure.
[2021-05-29] MEDS: ACETAMINOPHEN 500 MG TABLET 1000 MG PO (09:04)
[2021-05-29] MEDS: LACTATED RINGERS 1,000 ML 30 ML IV CONT ×2 (09:15→13:05)
--- NOTE | 2021-05-29 10:01 | WPDANESEPPF ---
Anes - Initial Pre Proc Eval Procedure: Operation Date: 05/29/21 11:00 Proposed Procedures p Right Total Knee Arthroplasty - Shankar Cali MD Date/Time: 05/29/21 10:01 Surgeon: Shankar Cali MD Pre Op Diagnosis: Right knee djd Patient Data Age: 61 Gender: F Height: 1.54 m Weight: 94.5 kg Last Vital Signs Temp 36.6 C 05/29/21 09:28 Pulse 81 05/29/21 09:28 Resp 16 05/29/21 09:28 BP 145/83 H 05/29/21 09:28 Pulse Ox 98 05/29/21 09:28 Allergies Allergy/AdvReac Type Severity Reaction Status Date / Time codeine AdvReac Mild Itching Verified 05/29/21 09:00 Home Medications Medication Instructions Recorded Confirmed Type dexamethasone 1 drp LEFT EYE QAM 02/15/20 05/29/21 History lisinopril 10 mg tablet 10 mg PO DAILY #90 tablet 10/25/20 05/29/21 Rx chlorhexidine gluconate 4 % 1 applic TOPICAL ONCE #237 ml 05/01/21 05/17/21 Rx topical liquid ibuprofen [Ibuprofen IB] 800 mg PO PRN PRN 05/15/21 05/29/21 History jutoxkibzblt-gqhe-jclwh acid 1 tablet PO DAILY 05/15/21 05/29/21 History [Centrum Women] Patient hx anesthesia problems: none Family hx anesthesia problems: none Results Review: All pre-operative results and documents have been reviewed as part of the pre-operative evaluation. [facility] Past Medical History Medical History Aftercare following left knee joint replacement surgery Anxiety Degenerative joint disease Hypertension Positive colorectal cancer screening using Cologuard test Post-menopausal Psoriasis Right knee pain Torn meniscus Left knee. Surgical History Surgical History History of arthroplasty of left knee (02/22/20) History of section History of corneal transplant Left eye. Family History Family History Sibling Patient's sister is in good health Patient's brother is in good health Father Family history of lung cancer Family history of malignant neoplasm of brain Patient's father is Mother Family history of emphysema Patient's mother is Other Diabetes mellitus Family history of arthritis Family history of malignant neoplasm Social History Social History Social History: Surrogate decision maker: izabela Hatfield. Code status: Full code. Additional smoking assessment comments: DENIES ANY FORM OF TOBACCO USE Alcohol intake: current Drinks per week: 4 Alcohol use details: Drinks alcohol socially and in moderation. Substance use: never Substance use type: does not use Living arrangements: alone Additional living arrangements comments: Lives in [place] with her son, [id number], and grandchildren. Gender identity (if verbalized by the patient): Female Spiritual care concerns: No Anes - Eval Final PreProcedure Day of Procedure 05/29/21 10:01 Patient weight: morbidly obese Heart: regular rate and rhythm Lungs: clear to auscultation Airway: Mallampati scale class II Neurological: alert and oriented Last oral intake: >/= 8 hours ASA classification: III Emergent: no Anesthetic plan: proceed Anesthesia type and monitoring: general LMA and standard monitoring Results Review: All pre-operative results and documents have been reviewed as part of the pre-operative evaluation. Informed Consent: The patient's anesthetic plan and its attendant risks and benefits were discussed with the patient/family/POA. Questions were solicited and answers provided to the satisfaction of the patient/family/POA.
[2021-05-29] MEDS: TRANEXAMIC ACID 1,000MG/ISO100 1,000 MG/100 ML BAG 200 MG IVPB (10:10)
--- NOTE | 2021-05-29 10:41 | WPDANESPNB ---
Anes - Peripheral Nerve Block Date/Time: 05/29/21 10:41 I have discussed with the patient/family/POA the placement of a peripheral nerve block for post-operative pain management, including associated risks, benefits, complications, and side effects. Alternative methods of post-operative analgesia were detailed. Questions were solicited and answers provided to the satisfaction of the patient/family/POA. Time-Out: A pre-procedural Time-Out was completed immediately before starting the procedure and confirmed: Patient Identification, Site, Procedure, Patient Position and the Availability of Requisite Equipment. Clinical Indications: Acute post-operative pain management requested by the operative surgeon. Nerve Block Insertion Note Anes-nerve block: adductor canal right Patient position: supine Skin prep: chlorhexidine Needle: 22 gauge, stimulating, insulated echogenic needle. Needle length: 80 mm Technique: ultrasound Technique comment: mid2mg [id number] Injectate: bupivacaine 0.5% with epi 5 mcg/ml (30ml no epi) and dexamethasone (mg) (8) Observations: tolerated well Complications: none Procedure start time:: 5 Procedure end time:: 5
[2021-05-29] MEDS: ceFAZolin 2 GM/D5W 50 ML 2 GM/50 ML BAG IVPB ×2 (10:53→17:35)
[2021-05-29] MEDS: TRANEXAMIC ACID 1,000 MG/10 ML AMPUL 1000 MG IV PUSH (12:20)
--- NOTE | 2021-05-29 13:21 | W.PM.PROC2 ---
Procedure Note - Detailed Date of Procedure 05/29/21 Pre-op Diagnosis Right knee djd Post-op Diagnosis same Procedure Performed R TKA Surgeon Shankar Cali MD Anesthesia general Description of Procedure THE RIGHT KNEE WAS PREPPED AND DRAPED IN THE STERILE FASHION. A MIDLINE SKIN INCISION WAS MADE. A MEDIAL PARAPATELLAR ARTHROTOMY WAS MADE. THE PATELLA WAS EVERTED. THERE WAS TRICOMPARTMENT DJD. THERE WAS MINIMAL PATELLA DJD. AN INTRAMEDULLARY LIS WAS PLACED IN THE FEMUR. A DISTAL FEMORAL CUT WAS MADE IN 5 DEGREES OF VALGUS REMOVING APPROXIMATELY 9 MM OF BONE FROM THE DISTAL FEMUR. THE FEMUR WAS SIZED TO 60. A 60 FEMORAL CUTTING BLOCK WAS PLACED IN 3 DEGREES OF EXTERNAL ROTATION AND IN ALIGNMENT WITH VAIBHAV'S LINE AND THE TRANSEPICONDYLAR AXIS. ANTERIOR POSTERIOR AND CHAMFER CUTS WERE MADE. THE CUTS WERE EXCELLENT. NEXT AN INTRAMEDULLARY CUTTING GUIDE WAS PLACED IN THE TIBIA. A TRANS TIBIAL CUT WAS MADE ALONG THE LONG AXIS OF THE TIBIA. APPROXIMATELY 10 MM OF BONE WAS REMOVED FROM THE HIGH SIDE OF THE TIBIA. THE TIBIA WAS THEN PLANED TO A SMOOTH SURFACE. POSTERIOR FEMORAL OSTEOPHYTES WERE REMOVED FROM THE FEMORAL CONDYLES. A 71 TIBIAL TRIAL WAS PLACED IN ALIGNMENT WITH THE 1/3 MEDIAL ASPECT OF THE TIBIAL TUBERCLE. THEN A 60 FEMORAL TRIAL COMPONENT WAS PLACED. BOTH HAD EXCELLENT FITS. EVENTUALLY A 16 MM CR POLYETHYLENE TRIAL COMPONENT WAS PLACED. THE KNEE WAS TAKEN THROUGH A RANGE OF MOTION. THE KNEE CAME OUT TO FULL EXTENSION. THERE WAS NO ABNORMAL TILT TO THE PATELLA. THERE WAS GOOD A/P AND VARUS/VALGUS STABILITY. THERE WAS NO EXCESSIVE ROLL BACK WITH FLEXION. THE TRIAL COMPONENTS WERE REMOVED. THEN A 60 FEMORAL COMPONENT AND 71 TIBIAL COMPONENT WITH A 16 CR POLYETHYLENE COMPONENT WERE CEMENTED INTO PLACE. ONCE THE CEMENT WAS HARD THE KNEE WAS TAKEN THROUGH A ROM AGAIN AND FOUND TO BE STABLE WITH NO PATELLA TILT NO EXCESSIVE ROLL BACK WITH FLEXION AND GOOD STABILITY WITH COMPLETE AND FULL EXTENSION. THE KNEE WAS IRRIGATED WITH STERILE BETADINE AND WATER FOR ABOUT 3 MINUTES. THE BLEEDERS WERE CAUTERIZED. THE ARTHROTOMY WAS REPAIRED WITH NUMBER 1 VICRYL. THE SUB CUTANEOUS LAYER WITH 2-0 VICRYL AND THE SKIN WITH JAE. THE WOUND WAS WASHED AND A STERILE DRESSING WAS APPLIED. PATIENT WAS EXTUBATED. Estimated Blood Loss -200.0 Pathology none sent Complications No immediate complications Condition stable Disposition PACU
[2021-05-29] MEDS: fentaNYL CITRATE INJ (*CRX) 100 MCG/2 ML VIAL 25 MCG IV PUSH ×8 (13:34→13:48)
[2021-05-29] MEDS: HYDROmorphone HCL INJ (*CRX) 1 MG/ML SYR IV PUSH ×3 (14:06→14:40)
--- NOTE | 2021-05-29 15:10 | ADMGEN ---
This patient, Isabel Ruvalcaba, was admitted to 2 Medical Room 242-01. Patient/family oriented to hospital policies and general routines including ID bracelet, bed and alarms, visiting hours, pain management, procedures, bathroom and other care routines, personal items, smoking policy, room service/diet, and visiting hours. Information on how to activate the Rapid Response Team has been discussed. Patient/Family are encouraged to report perceived risks to care and to ask questions if they do not understand what they are told or what they should do. Patient in bed with complaints of pain. Pain medication given prior to arriving to floor. Will continue to monitor patient.
[2021-05-29] MEDS: SODIUM CHLORIDE 0.9% IV 1,000 ML 125 ML IV CONT (15:30)
[2021-05-29] MEDS: oxyCODONE/ACETAMINOPHEN (*CRX) 5-325 MG TABLET 1 TABLET PO ×2 (16:19→22:43)
[2021-05-29] MEDS: DOCUSATE SODIUM 100 MG CAPSULE PO (16:19)
[2021-05-29] MEDS: CELECOXIB 200 MG CAPSULE PO (17:39)
[2021-05-29] MEDS: oxyCODONE/ACETAMINOPHEN (*CRX) 5-325 MG TABLET 2 TABLET PO (20:42)
[2021-05-29] MEDS: FAMOTIDINE 20 MG TABLET PO (20:45)
[2021-05-30 01:00] VITALS: BP 114/57; PULSE 81; RESP 16; TEMP 36.2; O2SAT 96
[2021-05-30] MEDS: ceFAZolin 2 GM/D5W 50 ML 2 GM/50 ML BAG IVPB ×2 (02:20→09:45)
[2021-05-30] MEDS: oxyCODONE/ACETAMINOPHEN (*CRX) 5-325 MG TABLET 2 TABLET PO ×2 (02:20→12:34)
[2021-05-30 05:00] VITALS: BP 119/73; PULSE 81; RESP 16; TEMP 36.3; O2SAT 96
[2021-05-30 05:13] LABS: Basophils Percent Auto 0.1 % (0.2-1.2); Hematocrit 30.6 % (37.0-47.0); Immature Granulocyte Absolute 0.04 K/mm3 (0.00-0.031); Immature Granulocyte Percent A 0.3 % (0-0.5); Lymphocytes Absolute Auto 1.64 K/mm3 (0.9-3.2); Lymphocytes Percent Auto 12.3 % (18.3-44.2); Mean Corpuscular HGB Conc 32.7 g/dl (32-36); Mean Corpuscular Hemoglobin 31.3 pg (26-34); Mean Corpuscular Volume 95.6 fl (80-100); Mean Platelet Volume 8.9 fl (7.4-10.4); Monocytes Absolute Auto 1.6 K/mm3 (0.1-0.6); Monocytes Percent Auto 11.8 % (2.6-8.5); Neutrophils Absolute Auto 10.1 K/mm3 (1.3-6.7); Neutrophils Percent Auto 75.5 % (45.5-73.1); Platelet Count Result 310 k/mm3 (150-375); Red Cell Distribution Width 12.7 % (11.5-14.5); White Blood Count 13.4 K/mm3 (4.5-10.0)
[2021-05-30 05:37] LABS: Anion Gap 6 mmol/L (8-16); Blood Urea Nitrogen 18 mg/dL (7-17); Calcium 8.7 mg/dL (8.4-10.2); Carbon Dioxide 25 mmol/L (22-30); Chloride 104 mmol/L (98-107); Estimated CRCL calculation 102 ml/min; Estimated Glomerular Filt Rate > 60; Glucose 118 mg/dL (65-110); Potassium 4.6 mmol/L (3.4-5.0); Sodium 135 mmol/L (137-145)
--- NOTE | 2021-05-30 07:34 | WPDHPUPDATE1 ---
History and Physical Update Update Date/Time: 05/30/21 07:34 History and Physical has been reviewed, including an updated exam of the patient. There are NO changes in the patient's condition. Risks, benefits, and alternatives have been discussed and questions answered. Patient agrees to proceed with procedure.
[2021-05-30] MEDS: CELECOXIB 200 MG CAPSULE PO (08:13)
[2021-05-30] MEDS: DOCUSATE SODIUM 100 MG CAPSULE PO (08:13)
[2021-05-30] MEDS: FAMOTIDINE 20 MG TABLET PO (08:13)
[2021-05-30] MEDS: oxyCODONE/ACETAMINOPHEN (*CRX) 5-325 MG TABLET 1 TABLET PO (08:14)
[2021-05-30] MEDS: ASPIRIN 325 MG ENTERIC TABLET 650 MG PO (08:14)
[2021-05-30] MEDS: lisinopriL 10 MG TABLET PO (08:14)
[2021-05-30 09:05] VITALS: BP 109/62; PULSE 80; RESP 20; TEMP 36.8; O2SAT 97
--- NOTE | 2021-05-30 09:29 | P.PNAN_ITS ---
Anes - Prog Note Post-Op Date/Time: 05/30/21 09:29 Cardiovascular status: normal Respiratory status: normal Airway patency: baseline Mental status: baseline Post-Op hydration status: normal Vital Signs: Last Vital Signs Temp 36.3 C L 05/30/21 05:00 Pulse 81 05/30/21 05:00 Resp 16 05/30/21 05:00 BP 119/73 05/30/21 05:00 Pulse Ox 96 05/30/21 05:00 Pain Score (VAS): 0 I/O: Intake & Output 05/29/21 05/30/21 05/30/21 23:59 07:59 15:59 Intake Total 990 650 Output Total 2200 Balance 990 -1550 Laboratory Tests 05/30/21 04:27 05/30/21 04:27 05/29/21 05/30/21 05/30/21 09:16 04:27 04:27 WBC 13.4 H RBC 3.20 L Hgb 10.0 L D Hct 30.6 L MCV 95.6 MCH 31.3 MCHC 32.7 RDW 12.7 Plt Count 310 MPV 8.9 Immature Gran % (Auto) 0.3 Neut % (Auto) 75.5 H Lymph % (Auto) 12.3 L [place] % (Auto) 11.8 H Eos % (Auto) 0.0 Baso % (Auto) 0.1 L Lymph # (Auto) 1.64 [place] # (Auto) 1.6 H Eos # (Auto) 0.0 Baso # (Auto) 0.0 Abs Immat Gran (auto) 0.04 H Absolute Neuts (auto) 10.1 H Absolute Nucleated RBC 0.0 Nucleated RBC % 0.0 Sodium 135 L Potassium 4.6 Chloride 104 Carbon Dioxide 25 Anion Gap 6 L BUN 18 H Creatinine 0.50 L Estim Creat Clear Calc 102 Estimated GFR > 60 Glucose 118 H Calcium 8.7 Blood Type O Positive Antibody Screen Negative Post-procedural complaints: none Patient Feedback: Patient satisfied with anesthetic care.
[2021-05-30 13:00] VITALS: BP 91/55; PULSE 91; RESP 18; TEMP 35.9; O2SAT 98
--- NOTE | 2021-05-30 15:30 | PM.PNORT ---
Progress Note: A&P Additional Plan POD 1 DOING WELL. STABLE.OK TO DC HOME SHE WILL F/U IN 3 MOS. Time Spent With Patient Time with patient: 15 - 25 minutes Subjective Subjective Date/Time Seen: 05/30/21 15:30 POD 1 DOING VERY WELL. HAS PASSED PT. NO CALF PAIN Exam Extrem: Other: VSS AFEBRILE DRESSING DRY NV INTACT NEG HOMANS SIGN CALF SOFT NON TENDER Objective Data Vital Signs Vital Signs: Vital Signs - 24 hr 05/29/21 16:00 05/29/21 17:00 05/29/21 20:53 Temperature 36.5 C 36.4 C L 36.6 C Pulse Rate 86 92 86 Respiratory Rate 14 16 16 Blood Pressure 132/75 109/73 140/75 Pulse Oximetry 97 94 96 05/30/21 01:00 05/30/21 05:00 05/30/21 09:05 Temperature 36.2 C L 36.3 C L 36.8 C Pulse Rate 81 81 80 Respiratory Rate 16 16 20 Blood Pressure 114/57 L 119/73 109/62 Pulse Oximetry 96 96 97 05/30/21 13:00 Temperature 35.9 C L Pulse Rate 91 Respiratory Rate 18 Blood Pressure 91/55 L Pulse Oximetry 98 Intake/Output Intake/Output: Intake & Output 05/27/21 05/28/21 05/29/21 05/30/21 23:59 23:59 23:59 23:59 Intake Total 2790 1130 Output Total 2200 Balance 2790 -1070 Meds/Results Medications: Active Medications Generic Name Dose Route Start Last Admin Trade Name Freq PRN Reason Stop Dose Admin Acetaminophen 1,000 mg 05/29/21 14:48 Acetaminophen 500 Mg Tablet PO Q6H PRN Pain Rated 1-3 Aspirin 650 mg 05/30/21 09:00 05/30/21 08:14 Aspirin 325 Mg Enteric Tablet PO 650 mg DAILY TING Administration Celecoxib 200 mg 05/29/21 17:00 05/30/21 08:13 Celecoxib 200 Mg Capsule PO 200 mg BIDWM TING Administration Dexamethasone 1 drop 05/30/21 09:00 05/30/21 08:14 Dexamethasone 0.1% Ophth Soln 5 Ml Btl LEFT EYE 06/29/21 08:59 1 drop QAM TING Administration Diazepam 5 mg 05/29/21 14:48 Diazepam (*Crx) 5 Mg Tablet PO Q8H PRN Spasms Diphenhydramine HCl 25 mg 05/29/21 14:48 Diphenhydramine Hcl Inj 50 Mg/Ml Vial IV PUSH Q6H PRN Itching Docusate Sodium 100 mg 05/29/21 17:00 05/30/21 08:13 Docusate Sodium 100 Mg Capsule PO 100 mg BID TING Administration Famotidine 20 mg 05/29/21 21:00 05/30/21 08:13 Famotidine 20 Mg Tablet PO 20 mg Q12HR TING Administration Lisinopril 10 mg 05/30/21 09:00 05/30/21 08:14 Lisinopril 10 Mg Tablet PO 10 mg DAILY TING Administration Naloxone HCl 0.1 mg 05/29/21 14:48 Naloxone Hcl 0.4 Mg/Ml Vial IV PUSH Q2M PRN Opiate Reversal Ondansetron HCl 4 mg 05/29/21 14:48 Ondansetron Inj 4 Mg/2 Ml Vial IV PUSH Q4H PRN Nausea And Vomiting Oxycodone/Acetaminophen 1 tablet 05/29/21 14:48 05/30/21 08:14 Oxycodone/Acetaminophen (*Crx) 5-325 Mg Tablet PO 1 tablet Q4H PRN Administration Pain Rated 4-6 Oxycodone/Acetaminophen 2 tablet 05/29/21 14:48 05/30/21 12:34 Oxycodone/Acetaminophen (*Crx) 5-325 Mg Tablet PO 2 tablet Q6H PRN Administration Pain Rated 7-10 Radiology Results: ITS Impressions Knee X-Ray 05/29/21 13:44 IMPRESSION: 1. Right total knee arthroplasty, negative for postoperative purposes. Labs Labs: Laboratory Results - last 24 hr 05/30/21 05/30/21 04:27 04:27 WBC 13.4 H RBC 3.20 L Hgb 10.0 L D Hct 30.6 L MCV 95.6 MCH 31.3 MCHC 32.7 RDW 12.7 Plt Count 310 MPV 8.9 Immature Gran % (Auto) 0.3 Neut % (Auto) 75.5 H Lymph % (Auto) 12.[address] % (Auto) 11.8 H Eos % (Auto) 0.0 Baso % (Auto) 0.1 L Lymph # (Auto) 1.64 Lane # (Auto) 1.6 H Eos # (Auto) 0.0 Baso # (Auto) 0.0 Abs Immat Gran (auto) 0.04 H Absolute Neuts (auto) 10.1 H Absolute Nucleated RBC 0.0 Nucleated RBC % 0.0 Sodium 135 L Potassium 4.6 Chloride 104 Carbon Dioxide 25 Anion Gap 6 L BUN 18 H Creatinine 0.50 L Estim Creat Clear Calc 102 Estimated GFR > 60 Glucose 118 H Calcium 8.7
--- NOTE | 2021-05-30 15:33 | PM.DS ---
DS: Admitting Diagnosis Discharge Date 05/30/21 Admitting Diagnosis RIGHT KNEE DJD DS: Discharge Diagnosis Discharge Diagnosis (1) Right knee DJD: Qualifiers: Osteoarthritis type: unspecified Qualified Code(s): M17.11 - Unilateral primary osteoarthritis, right knee Code(s): M17.11 - Unilateral primary osteoarthritis, right knee Status: Acute DS: Summary Hospital Course Reason for hospitalization: RIGHT TKA Hospital Course: PATIENT UNDERWENT RIGHT TKA AND DID WELL DURING SURGERY. SHE HAD NO COMPLICATIONS. SHE WS SENT TO THE ORTHO FLOOR AND DID WELL WITH PAIN CONTROL AND HAD REGULAR DIET AND TOLERATED IT WELL. SHE PASSED PT AND REMAINED STABLE ON POD 1 . SHE WAS FOUND TO BE READY FOR DISCHARGE ON POD 1 TO HOME WITH A REGULAR DIET AND DVT PROPHYLAXIS AND SHE WOULD HAVE HOME PT AND NURSING. Time spent discussing smoking cessation with patient: more than 10 minutes Status at Discharge Functional status at discharge: uses cane/walker Time Spent with Patient Time attestation: Total time spent providing and/or coordinating discharge services: Time spent: Less than 30 minutes DS: Data Data Completed and Pending Labs on day of discharge: Labs from last 24 hours 05/30/21 05/30/21 04:27 04:27 WBC 13.4 H RBC 3.20 L Hgb 10.0 L D Hct 30.6 L MCV 95.6 MCH 31.3 MCHC 32.7 RDW 12.7 Plt Count 310 MPV 8.9 Immature Gran % (Auto) 0.3 Neut % (Auto) 75.5 H Lymph % (Auto) 12.3 L [place] % (Auto) 11.8 H Eos % (Auto) 0.0 Baso % (Auto) 0.1 L Lymph # (Auto) 1.64 [place] # (Auto) 1.6 H Eos # (Auto) 0.0 Baso # (Auto) 0.0 Abs Immat Gran (auto) 0.04 H Absolute Neuts (auto) 10.1 H Absolute Nucleated RBC 0.0 Nucleated RBC % 0.0 Sodium 135 L Potassium 4.6 Chloride 104 Carbon Dioxide 25 Anion Gap 6 L BUN 18 H Creatinine 0.50 L Estim Creat Clear Calc 102 Estimated GFR > 60 Glucose 118 H Calcium 8.7 Discharge Plan Discharge Patient Disposition: Home, Self-Care Discharge Instructions: Per Care Coordination, pt. will discharge home with [facility] for continued PT/OT/Usp. SHANKAR CALI M.D. [facility] [address] [place] [address] POST OPERATIVE DISCHARGE INSTRUCTIONS FOLLOWING TOTAL KNEE REPLACEMENT SURGERY ? Your dressing will need to remain in place at discharge. You will be sent home with one additional dressing to be changed in 5 days by the home health RN. Your rosa will be removed on the 14th day after surgery and steri-strips will be placed. ? You may shower with your dressing but do not submerge in a bath tub. ? Do not drive or operate machinery until you are released by Dr. Cali. ? Do not walk without a walker for any reason until you are released by Dr. Cali. ? Continue to use your ice machine. Please use a towel or pillow case to protect your skin before applying your ice machine. ? Unless otherwise told by Dr. Cali you may be weight bearing as tolerated with your walker. ? Do NOT place a pillow under your knee. You may use a pillow from the calf down if needed. ? You may begin use of your CPM machine at home if you have been given one pre-operatively. DO NOT USE WHILE YOU ARE SLEEPING. ? Your follow up appointment is indicated in your discharge instructions. ? Your medications have been sent to your pharmacy. ? Please contact our office with any questions/concerns regarding your knee at [phone]. Follow-up/Referrals: Shankar Cali MD [Physician] - 3 Weeks Discharge Medications: New aspirin 325 mg Tablet,Delayed Release (Dr/Ec) 650 mg PO DAILY Qty: 21 RF: 0 oxycodone-acetaminophen [Percocet] 7.5-325 mg tablet 1 tablet PO Q6H PRN (Reason: pain) Qty: 50 RF: 0 Continued dexamethasone 0.1 % Drops,Suspension 1 drp LEFT EYE QAM RF: 0 Centrum Women 18-400 mg
== END 2021-05-30 17:34 | disposition home or self-care (01) ==
LOC: ANHSURGERY 08:52 → ANH2MED 14:54
PROVIDERS: PCP Internal Medicine; Visit Provider Orthopaedic Surgery
PROC: (CPT 27447; principal; 2021-05-29 11:00)
DX: M17.11 Unilateral primary osteoarthritis, right knee (principal); M25.761 Osteophyte, right knee; M25.561 Pain in right knee; F41.9 Anxiety disorder, unspecified; L40.9 Psoriasis, unspecified; G89.18 Other acute postprocedural pain; E66.01 Morbid (severe) obesity due to excess calories; Z68.41 Body mass index [BMI] 40.0-44.9, adult
CPT/HCPCS: 27447; 64447; 36415; 73560; 80048; 85025; 86850; 86900; 86901; 97110; 97116; 97162; 97165; A9270; C1713; C1776; J0171; J0690; J1100; J1170; J2250; J2270; J2405; J2704; J2795; J3010; J7030; J7120

== ENCOUNTER 2021-12-21 09:13 | Outpatient (CLI) | payer OTHER, SELFPAY ==
[2021-12-21 09:35] LABS: Hematocrit 38.7 % (37.0-47.0); Hemoglobin 12.3 g/dL (12.0-15.0); Mean Corpuscular HGB Conc 31.8 g/dl (32-36); Mean Corpuscular Hemoglobin 29.8 pg (26-34); Mean Corpuscular Volume 93.7 fl (80-100); Mean Platelet Volume 8.7 fl (7.4-10.4); Platelet Count Result 381 k/mm3 (150-375); Red Blood Count 4.13 M/mm3 (4.2-5.4); Red Cell Distribution Width 13.8 % (11.5-14.5); White Blood Count 8.1 K/mm3 (4.5-10.0)
[2021-12-21 09:51] LABS: Cholesterol 261 mg/dL (0-200); HDL Direct 64 mg/dL; Triglycerides 128 mg/dL (<150)
[2021-12-21 10:00] LABS: Alanine Aminotransferase 17 U/L (6-35); Albumin Level 4.5 g/dL (3.5-5.1); Alkaline Phosphatase 88 U/L (38-126); Anion Gap 7 mmol/L (8-16); Aspartate Amino Transferase 27 U/L (14-36); Bilirubin,Total 0.6 mg/dL (0.2-1.3); Blood Urea Nitrogen 19 mg/dL (7-17); CRP < 0.5 mg/dL (<1.0); Calcium 9.1 mg/dL (8.4-10.2); Carbon Dioxide 26 mmol/L (22-30); Chloride 105 mmol/L (98-107); Estimated Glomerular Filt Rate > 60; Glucose 107 mg/dL (65-110); Potassium 4.2 mmol/L (3.4-5.0); Sodium 138 mmol/L (137-145)
[2021-12-21 10:02] LABS: LDL Cholesterol Direct 130 mg/dL
[2021-12-21 10:12] LABS: Vitamin D 25 Hydroxy 33.9 ng/mL
[2021-12-21 10:19] LABS: Thyroid Stimulating Hormone 0.835 uIU/mL (0.465-4.680)
[2021-12-21 10:26] LABS: Erythrocyte Sedimentation Rate 22 mm/hr (0-20)
== END 2021-12-21 09:14 | disposition home or self-care (01) ==
LOC: ANHLAB 09:14
PROVIDERS: PCP Internal Medicine; Referring Provider Clinical Nurse Specialist; Visit Provider Internal Medicine
DX: L40.50 Arthropathic psoriasis, unspecified (principal); M19.90 Unspecified osteoarthritis, unspecified site; E55.9 Vitamin D deficiency, unspecified; I10 Essential (primary) hypertension; E78.5 Hyperlipidemia, unspecified
CPT/HCPCS: 36415; 80053; 80061; 82306; 84443; 85027; 85652; 86140

== ENCOUNTER 2022-02-22 09:19 | Outpatient (CLI) | payer OTHER, SELFPAY ==
[2022-02-22 17:57] LABS: Hematocrit 39.6 % (37.0-47.0); Hemoglobin 12.3 g/dL (12.0-15.0); Mean Corpuscular HGB Conc 31.1 g/dl (32-36); Mean Corpuscular Hemoglobin 29.7 pg (26-34); Mean Corpuscular Volume 95.7 fl (80-100); Mean Platelet Volume 9.1 fl (7.4-10.4); Platelet Count Result 409 k/mm3 (150-375); Red Blood Count 4.14 M/mm3 (4.2-5.4); Red Cell Distribution Width 13.1 % (11.5-14.5); White Blood Count 9.6 K/mm3 (4.5-10.0)
[2022-02-22 18:10] LABS: Alanine Aminotransferase 24 U/L (6-35); Albumin Level 4.3 g/dL (3.5-5.1); Alkaline Phosphatase 85 U/L (38-126); Anion Gap 11 mmol/L (8-16); Aspartate Amino Transferase 35 U/L (14-36); Bilirubin,Total 0.8 mg/dL (0.2-1.3); Blood Urea Nitrogen 23 mg/dL (7-17); CRP < 0.5 mg/dL (<1.0); Calcium 8.9 mg/dL (8.4-10.2); Carbon Dioxide 27 mmol/L (22-30); Chloride 101 mmol/L (98-107); Estimated Glomerular Filt Rate > 60; Glucose 95 mg/dL (65-110); Potassium 4.5 mmol/L (3.4-5.0); Sodium 139 mmol/L (137-145)
[2022-02-22 18:42] LABS: Erythrocyte Sedimentation Rate 16 mm/hr (0-20)
== END 2022-02-22 09:20 | disposition home or self-care (01) ==
LOC: ANHGOSHLAB 09:20
PROVIDERS: PCP Internal Medicine; Visit Provider Internal Medicine
DX: M19.90 Unspecified osteoarthritis, unspecified site (principal); L40.9 Psoriasis, unspecified; L40.50 Arthropathic psoriasis, unspecified
CPT/HCPCS: 36415; 80053; 85027; 85652; 86140

== ENCOUNTER 2022-08-07 08:05 | Outpatient (CLI) | payer OTHER, SELFPAY ==
--- NOTE | ~2022-08-07 | XR_ITS ---
EXAMINATION: XR shoulder RT min 2V DATE: 08/07/2022 08:20 INDICATION: Right shoulder pain. TECHNIQUE: 4 views of right shoulder were obtained. COMPARISON: None. FINDINGS: Bone alignment is normal. No fracture. There is mild osteoarthritis of glenohumeral joint a nd severe osteoarthritis of the acromioclavicular joint. IMPRESSION: 1. Polyarticular osteoarthritis. Reviewed, dictated and finalized at location A. CAR MANAGER
== END 2022-08-07 08:06 | disposition home or self-care (01) ==
LOC: ANHIMG 08:07
PROVIDERS: PCP Internal Medicine; Visit Provider Clinical Nurse Specialist
DX: M19.011 Primary osteoarthritis, right shoulder (principal)
CPT/HCPCS: 73030

== ENCOUNTER 2022-08-13 06:42 | Outpatient (CLI) | payer OTHER, SELFPAY ==
--- NOTE | ~2022-08-13 | MR_ITS ---
MRI of the right shoulder Technique: Axial proton-density fat-sat images, coronal proton density fat-sat and T2 fat-sat images, and sagittal T1-weighted and T2 fat-sat images were acquired. Clinical History: Limited range of motion, osteoarthritis Findings: There is moderate AC joint degenerative change, with small subacromial spur present. Coraco clavicular and coracohumeral ligaments are intact. Coracoacromial ligament somewhat poorly delineated . There is complete, full-thickness tear involving essentially the entire supraspinatus tendon, which i s retracted to the superior aspect of the humeral head. Fluid-filled gap measures approximately 3.6 x 2.7 cm in extent. There is severe infraspinatus tendinosis, without definite partial or full-thickne ss tear. Subscapularis tendon demonstrates a wavy morphology proximally, and is either completely tor n and partially retracted to the level of the coracoid process versus markedly attenuated distally. T endon of the long head of the biceps is not clearly visualized, presumably completely ruptured proxim ally and retracted. No labral tear identified. There is mild anterior subluxation of the humeral head, but no degenerative change or significant con templation the glenohumeral joint otherwise. Small to moderate glenohumeral joint effusion is present , with fluid passing through the rotator cuff defect into the subacromial/subdeltoid bursa and into t he subscapularis recess. Inferior glenohumeral ligament is intact. No muscle atrophy or edema identif ied at this time. Impression: Complete, full-thickness tear involving essentially the entire supraspinatus tendon, as detailed abov e. Suspected complete tear of the subscapularis tendon versus marked distal attenuation of the tendon. Suspected complete rupture of the proximal biceps tendon with retraction into the proximal bicipital groove. Moderate AC joint degenerative change. Severe infraspinatus tendinosis. Reviewed, dictated and finalized at location M. [employer] Impression: Complete, full-thickness tear involving essentially the entire supraspinatus te ndon, as detailed above. Suspected complete tear of the subscapularis tendon versus marked distal attenu ation of the tendon. Suspected complete rupture of the proximal biceps tendon with retraction into t he proximal bicipital groove. Moderate AC joint degenerative change. Severe infraspinatus tendinosis.
== END 2022-08-13 06:43 | disposition home or self-care (01) ==
PROVIDERS: PCP Internal Medicine; Visit Provider Clinical Nurse Specialist
DX: M25.511 Pain in right shoulder (principal); M75.121 Complete rotator cuff tear or rupture of right shoulder, not specified as traumatic; M65.811 Other synovitis and tenosynovitis, right shoulder
CPT/HCPCS: 73221

== ENCOUNTER 2022-10-17 09:36 | Outpatient (CLI) | payer OTHER, SELFPAY ==
--- NOTE | 2022-10-17 10:27 | ECG_ITS ---
Measurements Intervals [place] Rate: 70 P: 48 MS: 138 QRS: -3 QRSD: 91 T: 12 QT: 395 QTc: 429 Interpretive Statements SINUS RHYTHM CONSIDER INFERIOR INFARCT, AGE INDETERMINATE BASELINE ARTIFACT- I, II, III, AVR, AVL, AVF ABNORMAL ECG COMPARED TO ECG 02/15/2020 11:58:33 NO SIGNIFICANT CHANGES Electronically Signed On 10-17-2022 11:21:38 CDT by Joselito Franco D.O.
[2022-10-17 11:06] LABS: Basophils Absolute Auto 0.1 K/mm3 (0.0-0.1); Eosinophils Absolute Auto 0.2 K/mm3 (0-0.3); Eosinophils Percent Auto 2.4 % (0-4.4); Hematocrit 35.6 % (37.0-47.0); Hemoglobin 11.5 g/dL (12.0-15.0); Immature Granulocyte Absolute 0.01 K/mm3 (0.00-0.031); Immature Granulocyte Percent A 0.1 % (0-0.5); Lymphocytes Absolute Auto 3.01 K/mm3 (0.9-3.2); Lymphocytes Percent Auto 41.9 % (18.3-44.2); Mean Corpuscular HGB Conc 32.3 g/dl (32-36); Mean Corpuscular Hemoglobin 29.9 pg (26-34); Mean Corpuscular Volume 92.7 fl (80-100); Monocytes Absolute Auto 0.7 K/mm3 (0.1-0.6); Monocytes Percent Auto 9.2 % (2.6-8.5); Neutrophils Absolute Auto 3.3 K/mm3 (1.3-6.7); Neutrophils Percent Auto 45.4 % (45.5-73.1); Platelet Count Result 350 k/mm3 (150-375); Red Blood Count 3.84 M/mm3 (4.2-5.4); Red Cell Distribution Width 12.8 % (11.5-14.5); White Blood Count 7.2 K/mm3 (4.5-10.0)
== END 2022-10-17 09:37 | disposition home or self-care (01) ==
PROVIDERS: PCP Internal Medicine; Visit Provider Orthopaedic Surgery
DX: Z01.818 Encounter for other preprocedural examination (principal); I10 Essential (primary) hypertension; M12.811 Other specific arthropathies, not elsewhere classified, right shoulder; R94.31 Abnormal electrocardiogram [ECG] [EKG]
CPT/HCPCS: 36415; 85025; 87081; 93005

== ENCOUNTER 2022-11-11 00:24 | Day surgery (SDC) | payer OTHER, SELFPAY ==
--- NOTE | 2022-10-17 09:28 | PC.NURSE ---
PRE-OP INSTRUCTIONS, PLEASE READ CAREFULLY Report to the Outpatient Waiting Room, entrance under the green pavilion located off [facility], at time _1000_ on date _11/11/22_. Planned Procedure Time: _1200_. PACK A SMALL OVERNIGHT BAG AND LEAVE IN THE CAR Time changes happen often and if your time is changed the preop area will call you the afternoon before. - You and your visitor will be asked to self-screen and do not enter if you have any COVID symptoms. - Only one visitor is requested with a max of two and NO children visitors are allowed at this time. - The patient visitor may be requested to leave or wait in car when not with patient due to distancing restrictions. - A mask is optional within the hospital at this time. -VISITING HOURS 8AM-8PM Patients may have clear liquids (water, carbonated beverages, clear teas, apple juice) until 3 hours prior to surgery (0900 AM) with a maximum of 20 ounces. - No food from midnight until time of surgery Take the following medications with a SIP of water the morning of surgery: _LEFT EYE DROP_ DO NOT STOP ANY OF YOUR OTHER PRESCRIPTION MEDICATIONS PRIOR TO SURGERY ?EXCEPT THE FOLLOWING Medications to discontinue per DR. GREWAL - _IBUPROFEN 7 DAYS PRIOR TO SURGERY, Date to take last dose 11/03/22 & OTEZLA INSTRUCTED_ Medications to discontinue per ANESTHESIA -_MULTIVITAMIN 3 DAYS PRIOR TO SURGERY, Date to take last dose 11/07/22_ Please no make-up, nail japanese, hairspray, perfume, deodorant, or body powder the day of surgery. No jewelry (including any body piercings) or valuables the day of surgery, leave them at home. Please take a shower or bath the night before, or the morning of, surgery with an antibacterial soap. Wear comfortable, loose fitting clothing. - Jewelry must be removed prior to entering the operating room. Rings and piercings that are not removed may be cut off. - The hospital will not accept responsibility for valuables. - Please leave all valuables, including medications, at home the day of surgery. If you are going home after surgery, a licensed driver education instructor must drive you home. - NO public transportation without another adult if you receive anesthesia. - We recommend that an adult stay with you for 24 hours following discharge. - We also recommend that you do not drive, make important decision, drink alcoholic beverages, or take any drugs that were not prescribed by your health care provider for at least 24 hours after your discharge time. Follow any additional instructions given to you from your surgeon. If you or anyone in your household have experienced Covid symptoms in the past week, please notify your surgeon or the nurse liaison at the phone number below for possible testing. Instructions given to _PATIENT_and asked if any additional questions and then verbalized understanding. Patient advised to call surgeon office or pre surgery nurse liaison [phone] if any additional questions.
[2022-10-17 09:56] VITALS: BP 104/64; PULSE 72; RESP 18; TEMP 36.8; O2SAT 98; BMI 39.6
[2022-11-11] VITALS (12 sets, daily range): BP systolic 113–144; BP diastolic 49–93; PULSE 81–94; RESP 14–18; TEMP 36.1–36.5; O2SAT 92–99
--- NOTE | ~2022-11-11 | XR_ITS ---
EXAMINATION: XR shoulder RT min 2V DATE: 11/11/2022 14:43 INDICATION: Right shoulder arthroplasty TECHNIQUE: 2 views right shoulder FINDINGS: There is a right shoulder arthroplasty in expected position. Subcutaneous gas with soft ti ssue swelling are consistent with recent surgery. IMPRESSION: 1. Recent right shoulder arthroplasty. Reviewed, dictated and finalized at location A.
--- NOTE | 2022-11-11 09:05 | WPDANESEPPF ---
Anes - Initial Pre Proc Eval Procedure: Operation Date: 11/11/22 12:00 Proposed Procedures p Right Reverse Total Shoulder Arthroplasty - [place] Sanchez MD Date/Time: 11/11/22 09:05 Surgeon: Raleigh Sanchez MD Pre Op Diagnosis: rotator cuff arthropathy right shoulder Patient Data Age: 62 Gender: F Height: 1.52 m Weight: 92 kg Last Vital Signs Temp 36.8 C 10/17/22 09:56 Pulse 72 10/17/22 09:56 Resp 18 10/17/22 09:56 BP 104/64 10/17/22 09:56 Pulse Ox 98 10/17/22 09:56 O2 Del Method Room Air 10/17/22 09:56 Allergies Allergy/AdvReac Type Severity Reaction Status Date / Time codeine AdvReac Mild Itching Verified 11/11/22 10:06 Home Medications Medication Instructions Recorded Confirmed Type dexamethasone 0.1 % eye 1 drp LEFT EYE QAM 02/15/20 11/11/22 History drops,suspension multivitamin-ferrous 1 tablet PO DAILY 05/15/21 11/11/22 History fumarate-folic acid 18 mg-400 mcg tablet (Centrum Women) ibuprofen 800 mg tablet 800 mg PO TID PRN pain #90 tabs 08/20/22 11/11/22 Rx apremilast 30 mg tablet (Otezla) 30 mg PO BID #60 tabs 09/23/22 11/11/22 Rx lisinopril 10 mg tablet 10 mg PO DAILY #90 tabs 09/23/22 11/11/22 Rx loratadine 10 mg capsule 10 mg PO DAILY 10/17/22 11/11/22 History tramadol 50 mg tablet 50 mg PO Q6H PRN pain #40 tabs 10/31/22 Rx Patient hx anesthesia problems: none Family hx anesthesia problems: none Results Review: All pre-operative results and documents have been reviewed as part of the pre-operative evaluation. [facility] Past Medical History Medical History Aftercare following left knee joint replacement surgery Anxiety Degenerative joint disease Hypertension Muscle spasm Positive colorectal cancer screening using Cologuard test Post-menopausal Psoriasis Right knee pain Scalp psoriasis Torn meniscus Left knee. 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 Code status: Full code. Smoking status: Never smoker Second hand tobacco smoke exposure: No Additional smoking assessment comments: DENIES ANY FORM OF TOBACCO USE Alcohol intake: former Drinks per week: 4 Alcohol use details: DRANK SOCIALLY 4 DRINKS/WEEK - STOPPED APR 2022 Substance use: never Substance use type: does not use Lack of Transportation: No Lack of Food: Never True Current Housing: I Have Housing Concerned About Future Housing: No Difficulty Paying Gas/Electric Bills: YES Difficulty Paying for Meds: No Currently Unemployed: YES Education: High School Diploma/GED Difficulty w/ Childcare or Family Care: No Living arrangements: alone Additional living arrangements comments: Lives in [place] with her son, [id number], and grandchildren. Gender identity (if verbalized by the patient): Female Spiritual care concerns: No Anes - Eval Final PreProcedure Day of Procedure 11/11/22 09:05 Patient weight: obese Heart: regular rate and rhythm Lungs: clear to auscultation Airway: Mallampati scale class II Neurological: alert and oriented Last oral intake: >/= 8 hour
--- NOTE | 2022-11-11 09:05 | WPDANESPNB ---
Anes - Peripheral Nerve Block Date/Time: 11/11/22 09:05 I have discussed with the patient/family/POA the placement of a peripheral nerve block for post-operative pain management, including associated risks, benefits, complications, and side effects. Alternative methods of post-operative analgesia were detailed. Questions were solicited and answers provided to the satisfaction of the patient/family/POA. Time-Out: A pre-procedural Time-Out was completed immediately before starting the procedure and confirmed: Patient Identification, Site, Procedure, Patient Position and the Availability of Requisite Equipment. Clinical Indications: Acute post-operative pain management requested by the operative surgeon. Nerve Block Insertion Note Anes-nerve block: interscalene right Patient position: supine Skin prep: chlorhexidine Needle: 22 gauge, stimulating, insulated echogenic needle. Needle length: 50 mm Technique: ultrasound Injectate: bupivacaine 0.5% with epi 5 mcg/ml (30cc- no epi) Observations: tolerated well Complications: none Procedure start time:: 1157 Procedure end time:: 1201
[2022-11-11] MEDS: ACETAMINOPHEN 500 MG TABLET 1000 MG PO ×3 (10:37→21:19)
[2022-11-11] MEDS: LACTATED RINGERS 1,000 ML 30 ML IV CONT ×2 (10:38→14:22)
--- NOTE | 2022-11-11 10:51 | WPDHPUPDATE1 ---
History and Physical Update Update Date/Time: 11/11/22 10:51 History and Physical has been reviewed, including an updated exam of the patient. There are NO changes in the patient's condition. Risks, benefits, and alternatives have been discussed and questions answered. Patient agrees to proceed with procedure.
[2022-11-11] MEDS: TRANEXAMIC ACID 1,000MG/ISO100 1,000 MG/100 ML BAG 200 MG IVPB (11:30)
[2022-11-11] MEDS: ceFAZolin 2 GM/D5W 50 ML 2 GM/50 ML BAG IVPB ×2 (12:05→19:39)
[2022-11-11] MEDS: VANCOMYCIN HCL 1,000 MG VIAL 1000 MG TOPICAL (12:59)
--- NOTE | 2022-11-11 14:25 | W.PM.PROC2 ---
Procedure Note - Detailed Date of Procedure 11/11/22 Pre-op Diagnosis Rotator cuff arthropathy right shoulder Post-op Diagnosis Same Procedure Performed Reverse total shoulder arthroplasty, right Surgeon Raleigh Sanchez MD Manager Skilled Ronel Colindres PA-C Anesthesia General and Regional (Interscalene block.) Indications Massive rotator cuff tear and failed previous cuff surgery. Findings Massive cuff tear. Teres minor intact. Small bone stature, but good bone quality. Description of Procedure The patient was given an interscalene block in the preoperative area. Preoperative antibiotics were given. The patient was transferred to the operating room and a general anesthetic was administered. The beach chair position was used at 45 degrees. All bony prominences were padded. The head was carefully stabilized on the [facility] head of mobile. A sterile prep and drape was performed in the usual manner with ChloraPrep. A longitudinal incision was created at the anterior shoulder just lateral to the deltopectoral interval. Hydrogen peroxide was placed on the incision and then rinsed after one minute. Careful dissection was performed to expose the interval and protect the cephalic vein. The vein was retracted medially. Anterior circumflex vessel branches were suture ligated. The biceps tendon was absent. A subscapularis tenotomy was performed. The inferior capsule was released, exposing the humeral head. Osteophytes were removed. Care was taken to stay on bone to protect the axillary nerve. The anatomic head cut was taken with the oscillating saw. The guide pin was placed, central drilling performed, and the broach trial inserted. The neck anteversion and inclination were carefully assessed. The cut protector was placed, and attention was turned to the glenoid. Retractors were placed. Releases were carried out for exposure. The subscapularis was mobilized, the inferior capsule and long head of triceps released, and the superior and middle glenohumeral ligaments released as well. Labral tissue was resected as needed. The sizing template was used to assess the baseplate position low on the glenoid. A guide pin was placed. Minimal reaming was used to accomplish a flat surface without violating the subchondral bone. Version was corrected according to preoperative templating. The boss was drilled, and the real component was impacted into position. Supplemental locking screws were placed centrally, superiorly, and inferiorly. The glenosphere was impacted into the taper. The proximal humerus was reamed for the inset component. The humeral components were trialed. The real humeral stem, tray, and insert were impacted into position. The shoulder was copiously irrigated periodically with pulsatile lavage. The shoulder was reduced and stability confirmed. 1 gram of Vancomycin powder was placed in the joint. The deltopectoral space was reapproximated with number 2-0 Vicryl. The remaining tissue was closed with 2-0 stratafix and 3-0 stratafix running suture and steri-strips. A sterile silver occlusive dressing and shoulder immobilizer were placed. The patient was transferred to the recovery room. Physician front office medical assistant, Ronel Colindres PA-C, required for surgery; including patient positioning, draping, tissue retraction, maintaining instrument position, wound closure, and dressing placement. Implants Shoulder Innovations reverse TSA size 0 stem. +0 polyethylene insert. Standard baseplate. 33+ 3 mm glenosphere. Estimated Blood Loss 150 Drains No Pathology None sent Complications No immediate complications Condition Stable Disposition PACU [facility] Billing Surgery - Charge Forward: Surgery Billing
[2022-11-11] MEDS: fentaNYL CITRATE INJ (*CRX) 100 MCG/2 ML VIAL 25 MCG IV PUSH (14:47)
--- NOTE | 2022-11-11 16:01 | ADMGEN ---
This patient, Isabel Ruvalcaba, was admitted to Medical Room 249-01. Patient/family oriented to hospital policies and general routines including ID bracelet, bed and alarms, visiting hours, pain management, procedures, bathroom and other care routines, personal items, smoking policy, room service/diet, and visiting hours. Information on how to activate the Rapid Response Team has been discussed. Patient/Family are encouraged to report perceived risks to care and to ask questions if they do not understand what they are told or what they should do.
[2022-11-11] MEDS: SENNA/DOCUSATE SODIUM TABLET 2 TAB PO (16:13)
[2022-11-11] MEDS: SODIUM CHLORIDE 0.9% IV 1,000 ML 125 ML IV CONT (16:14)
[2022-11-11] MEDS: ASPIRIN 81 MG ENTERIC TABLET PO (17:10)
[2022-11-11] MEDS: oxyCODONE HCL (*CRX) 5 MG TAB IR 10 MG PO ×2 (17:12→21:18)
[2022-11-11] MEDS: MELOXICAM 7.5 MG TABLET PO (17:40)
[2022-11-11] MEDS: CYCLOBENZAPRINE HCL 10 MG TABLET PO (20:06)
[2022-11-11] MEDS: FAMOTIDINE 20 MG TABLET PO (21:19)
[2022-11-12 01:50] VITALS: BP 116/60; PULSE 79; RESP 16; TEMP 36.6; O2SAT 94
[2022-11-12] MEDS: oxyCODONE HCL (*CRX) 5 MG TAB IR 10 MG PO ×2 (02:45→08:00)
[2022-11-12] MEDS: ACETAMINOPHEN 500 MG TABLET 1000 MG PO ×2 (03:35→09:11)
[2022-11-12] MEDS: ceFAZolin 2 GM/D5W 50 ML 2 GM/50 ML BAG IVPB ×2 (03:37→11:14)
[2022-11-12 05:24] VITALS: BP 100/64; PULSE 69; RESP 18; TEMP 36.4; O2SAT 96
[2022-11-12 05:25] LABS: Anion Gap 3 mmol/L (8-16); Basophils Percent Auto 0.3 % (0.2-1.2); Blood Urea Nitrogen 20 mg/dL (7-17); Calcium 8.3 mg/dL (8.4-10.2); Carbon Dioxide 29 mmol/L (22-30); Chloride 105 mmol/L (98-107); Estimated CRCL calculation 83 ml/min; Estimated Glomerular Filt Rate > 60; Glucose 110 mg/dL (65-110); Hemoglobin 10.1 g/dL (12.0-15.0); Immature Granulocyte Absolute 0.05 K/mm3 (0.00-0.031); Immature Granulocyte Percent A 0.4 % (0-0.5); Lymphocytes Absolute Auto 2.39 K/mm3 (0.9-3.2); Lymphocytes Percent Auto 17.3 % (18.3-44.2); Mean Corpuscular HGB Conc 31.6 g/dl (32-36); Mean Corpuscular Hemoglobin 28.9 pg (26-34); Mean Corpuscular Volume 91.7 fl (80-100); Mean Platelet Volume 8.7 fl (7.4-10.4); Monocytes Absolute Auto 1.4 K/mm3 (0.1-0.6); Monocytes Percent Auto 10.3 % (2.6-8.5); Neutrophils Absolute Auto 9.9 K/mm3 (1.3-6.7); Neutrophils Percent Auto 71.7 % (45.5-73.1); Platelet Count Result 365 k/mm3 (150-375); Potassium 4.3 mmol/L (3.4-5.0); Red Blood Count 3.49 M/mm3 (4.2-5.4); Red Cell Distribution Width 13.2 % (11.5-14.5); Sodium 137 mmol/L (137-145); White Blood Count 13.8 K/mm3 (4.5-10.0)
[2022-11-12 08:00] VITALS: O2SAT 96
--- NOTE | 2022-11-12 08:23 | PM.DS ---
DS: Admitting Diagnosis Discharge Date 11/12/22 Admitting Diagnosis Massive rotator cuff tear. DS: Discharge Diagnosis Discharge Diagnosis (1) Status post reverse total arthroplasty of right shoulder: Code(s): Z96.611 - Presence of right artificial shoulder joint Status: Acute Assessment and Plan: Postop day 1: Right reverse total shoulder arthroplasty. Patient tolerated procedure well. No complications. Pain manageable with pain medication. No numbness or tingling. Block wearing off. We had a lengthy discussion regarding postoperative wound care, limitations, expectations, and exercises. Patient shows good understanding. She has had initial physical therapy and is tolerating it well. DVT prophylaxis: 81 mg baby aspirin b.i.d. for 14 days. Pain medication: Percocet. Meloxicam. Patient has followup appointment with Dr. Sanchez in 3 weeks. DS: Summary Hospital Course Reason for hospitalization: Elective reverse total shoulder arthroplasty. Hospital Course: Patient tolerated procedure well. Has had initial PT and OT and is tolerating it well. Status at Discharge Functional status at discharge: independent ambulation Overall status at discharge: patient is progressing back to baseline Time Spent with Patient Time attestation: Total time spent providing and/or coordinating discharge services: Exam Narrative: Overweight 62 y/o Female. Resting comfortably in chair. Wearing sling. Dressing dry and intact with no drainage. Moderate swelling. Moderate ecchymosis. No erythema. No hematoma. Range of motion limited due to pain. Calf nontender. Neurologic status intact. No varicosities. Distal pulses palpable. DS: Data Data Completed and Pending Labs on day of discharge: Labs from last 24 hours 11/12/22 11/12/22 11/11/22 05:04 05:04 10:29 WBC 13.8 H RBC 3.49 L Hgb 10.1 L Hct 32.0 L MCV 91.7 MCH 28.9 MCHC 31.6 L RDW 13.2 Plt Count 365 MPV 8.7 Immature Gran % (Auto) 0.4 Neut % (Auto) 71.7 Lymph % (Auto) 17.3 L Roberts % (Auto) 10.3 H Eos % (Auto) 0.0 Baso % (Auto) 0.3 Lymph # (Auto) 2.39 Roberts # (Auto) 1.4 H Eos # (Auto) 0.0 Baso # (Auto) 0.0 Abs Immat Gran (auto) 0.05 H Absolute Neuts (auto) 9.9 H Absolute Nucleated RBC 0.0 Nucleated RBC % 0.0 Sodium 137 Potassium 4.3 Chloride 105 Carbon Dioxide 29 Anion Gap 3 L BUN 20 H Creatinine 0.60 L Estim Creat Clear Calc 83 Estimated GFR > 60 Glucose 110 Calcium 8.3 L Blood Type O Positive Antibody Screen Negative Discharge Plan Discharge Patient Disposition: Home, Self-Care Discharge Instructions: See green instruction sheets Patient Instructions: Pain Management (DC) Stand Alone Forms: General Discharge Instructions Follow-up/Referrals: Ronel Colindres PA [Physician Cyber Security Consultant] - Discharge Medications: New meloxicam 15 mg tablet 15 mg PO DAILY Qty: 30 0RF Rx Instructions: Cut in half. Take 1/2 in morning and 1/2 at night. Take with food. Stop if stomach upset. aspirin 81 mg tablet,delayed release (DR/EC) 81 mg PO BID 14 Days Qty: 28 0RF oxycodone-acetaminophen 5-325 mg tablet 1 - 2 tablet PO Q4-6H MDD 6 PRN (Reason: pain) Qty: 30 0RF Continued dexamethasone 0.1 % Drops,Suspension 1 drp LEFT EYE QAM Rx Instructions: LEFT EYE Centrum Women 18-400 mg-mcg Tablet 1 tablet PO DAILY loratadine 10 mg Capsule 10 mg PO DAILY lisinopril 10 mg tablet 10 mg PO DAILY Qty: 90 0RF Otezla 30 mg tablet 30 mg PO BID Qty: 60 11RF Held ibuprofen 800 mg tablet 800 mg PO TID PRN (Reason: pain) Qty: 90 1RF Hold Instructions: Resume on 12/09/22. Do not take while taking Meloxicam. tramadol 50 mg tablet 50 mg PO Q6H PRN (Reason: pain) Qty: 40 0RF Hold Instructions: Resume on 11/25/22. Do not take Tramadol while taki
[2022-11-12] MEDS: ASPIRIN 81 MG ENTERIC TABLET PO (08:27)
[2022-11-12] MEDS: FAMOTIDINE 20 MG TABLET PO (08:28)
[2022-11-12] MEDS: LORATADINE 10 MG TABLET PO (08:28)
[2022-11-12] MEDS: lisinopriL 10 MG TABLET PO (08:28)
[2022-11-12] MEDS: MELOXICAM 7.5 MG TABLET PO (08:28)
[2022-11-12 10:00] VITALS: BP 127/76; PULSE 77; RESP 18; TEMP 36.3; O2SAT 99
== END 2022-11-12 12:12 | disposition home or self-care (01) ==
LOC: ANHSURGERY 14:20 → ANH2MED 15:52
PROVIDERS: Physician Assistant Surgical; PCP Internal Medicine; Visit Provider Orthopaedic Surgery
PROC: (CPT 23472; principal; 2022-11-11 12:00)
DX: S46.011A Strain of muscle(s) and tendon(s) of the rotator cuff of right shoulder, initial encounter (principal); M12.811 Other specific arthropathies, not elsewhere classified, right shoulder; L40.50 Arthropathic psoriasis, unspecified; G89.18 Other acute postprocedural pain; X50.0XXA Overexertion from strenuous movement or load, initial encounter; L40.9 Psoriasis, unspecified; I10 Essential (primary) hypertension; E66.9 Obesity, unspecified; Z68.39 Body mass index [BMI] 39.0-39.9, adult
CPT/HCPCS: 23472; 64415; 36415; 73030; 80048; 85025; 86850; 86900; 86901; 97110; 97161; 97165; 97535; A4565; A9270; J0171; J0690; J1100; J1170; J1885; J2250; J2270; J2370; J2405; J2704; J2795; J3010; J3370; J7030; J7120

== ENCOUNTER 2023-01-17 09:56 | Outpatient (CLI) | payer OTHER, SELFPAY ==
[2023-01-17 10:22] LABS: Basophils Absolute Auto 0.1 K/mm3 (0.0-0.1); Eosinophils Absolute Auto 0.1 K/mm3 (0-0.3); Hematocrit 38.8 % (37.0-47.0); Hemoglobin 12.2 g/dL (12.0-15.0); Immature Granulocyte Absolute 0.01 K/mm3 (0.00-0.031); Immature Granulocyte Percent A 0.1 % (0-0.5); Lymphocytes Absolute Auto 3.23 K/mm3 (0.9-3.2); Lymphocytes Percent Auto 47.2 % (18.3-44.2); Mean Corpuscular HGB Conc 31.4 g/dl (32-36); Mean Corpuscular Hemoglobin 29.3 pg (26-34); Mean Corpuscular Volume 93.3 fl (80-100); Mean Platelet Volume 8.6 fl (7.4-10.4); Monocytes Absolute Auto 0.6 K/mm3 (0.1-0.6); Monocytes Percent Auto 8.2 % (2.6-8.5); Neutrophils Absolute Auto 2.8 K/mm3 (1.3-6.7); Neutrophils Percent Auto 41.5 % (45.5-73.1); Platelet Count Result 424 k/mm3 (150-375); Red Blood Count 4.16 M/mm3 (4.2-5.4); Red Cell Distribution Width 13.5 % (11.5-14.5); White Blood Count 6.9 K/mm3 (4.5-10.0)
[2023-01-17 10:32] LABS: Anion Gap 6 mmol/L (8-16); Blood Urea Nitrogen 29 mg/dL (7-17); Carbon Dioxide 30 mmol/L (22-30); Chloride 103 mmol/L (98-107); Estimated Glomerular Filt Rate > 60; Potassium 4.4 mmol/L (3.4-5.0); Sodium 139 mmol/L (137-145)
[2023-01-17 10:33] LABS: Alanine Aminotransferase 22 U/L (6-35); Albumin Level 4.4 g/dL (3.5-5.1); Alkaline Phosphatase 100 U/L (38-126); Aspartate Amino Transferase 26 U/L (14-36); Bilirubin,Total 0.6 mg/dL (0.2-1.3); Calcium 9.4 mg/dL (8.4-10.2); Cholesterol 246 mg/dL (0-200); Glucose 97 mg/dL (65-110); HDL Direct 73 mg/dL; Triglycerides 127 mg/dL (<150)
[2023-01-17 10:43] LABS: LDL Cholesterol Direct 136 mg/dL
[2023-01-17 11:54] LABS: Vitamin D 25 Hydroxy 29.4 ng/mL
[2023-01-25 05:20] LABS: Thyroid Peroxidase Antibodies 1 IU/mL (<9)
== END 2023-01-17 09:57 | disposition home or self-care (01) ==
PROVIDERS: PCP Internal Medicine; Visit Provider Clinical Nurse Specialist
DX: I10 Essential (primary) hypertension (principal); E53.8 Deficiency of other specified B group vitamins; D72.829 Elevated white blood cell count, unspecified; E55.9 Vitamin D deficiency, unspecified
CPT/HCPCS: 36415; 80053; 80061; 82306; 82607; 84443; 85025; 86376

== ENCOUNTER 2023-11-20 11:07 | Outpatient (CLI) | payer OTHER, SELFPAY ==
[2023-11-20 11:39] LABS: Hematocrit 43.5 % (37.0-47.0); Hemoglobin 13.7 g/dL (12.0-15.0); Mean Corpuscular HGB Conc 31.5 g/dl (32-36); Mean Corpuscular Hemoglobin 28.8 pg (26-34); Mean Corpuscular Volume 91.4 fl (80-100); Platelet Count Result 425 k/mm3 (150-375); Red Blood Count 4.76 M/mm3 (4.2-5.4); Red Cell Distribution Width 13.2 % (11.5-14.5); White Blood Count 8.6 K/mm3 (4.5-10.0)
[2023-11-20 12:01] LABS: Alanine Aminotransferase 22 U/L (6-35); Albumin Level 4.8 g/dL (3.5-5.1); Alkaline Phosphatase 100 U/L (38-126); Anion Gap 10 mmol/L (4-12); Aspartate Amino Transferase 28 U/L (14-36); Bilirubin,Total 1.2 mg/dL (0.2-1.3); Blood Urea Nitrogen 31 mg/dL (7-17); CRP < 0.5 mg/dL (<1.0); Calcium 10.2 mg/dL (8.4-10.2); Carbon Dioxide 23 mmol/L (22-30); Chloride 105 mmol/L (98-107); Estimated Glomerular Filt Rate > 60; Glucose 104 mg/dL (65-110); Potassium 4.9 mmol/L (3.4-5.0); Sodium 138 mmol/L (137-145)
[2023-11-20 12:13] LABS: Appearance Urine Clear (Clear); Bacteria Urine None Seen /hpf; Bilirubin Urine Negative (Negative); Blood Urine Negative (Negative); Color Urine Dark Yellow (Yellow); Glucose Urine UA Negative (Negative); Hyaline Casts Urine Present /lpf; Ketones Urine Trace mg/dL (Negative); Leukocyte Esterase Ur Trace LEU/UL (Negative); Need Manual Microscopic Reviewed; Nitrate Urine Negative (Negative); Protein Urine Negative (Negative); RBC Urine 0-2 /hpf (0-2); Squamous Epithelial Cell Urine Few /hpf (Few); WBC Urine 0-5 /hpf (0-3); pH Urine 5.5 (5.0-9.0)
[2023-11-20 12:16] LABS: Add Urine Microscopic? YES
[2023-11-20 12:23] LABS: Erythrocyte Sedimentation Rate 14 mm/hr (0-20)
== END 2023-11-20 11:08 | disposition home or self-care (01) ==
LOC: ANHLAB 11:08
PROVIDERS: PCP Internal Medicine; Visit Provider Internal Medicine
DX: M19.90 Unspecified osteoarthritis, unspecified site (principal); L40.50 Arthropathic psoriasis, unspecified
CPT/HCPCS: 36415; 80053; 81001; 85027; 85652; 86140

== ENCOUNTER 2024-10-04 12:05 | Outpatient (CLI) | payer OTHER, SELFPAY ==
[2024-10-04 12:27] LABS: Basophils Absolute Auto 0.1 K/mm3 (0.0-0.1); Basophils Percent Auto 0.9 % (0.2-1.2); Eosinophils Absolute Auto 0.2 K/mm3 (0-0.3); Eosinophils Percent Auto 3.2 % (0-4.4); Hematocrit 40.7 % (37.0-47.0); Hemoglobin 12.8 g/dL (12.0-15.0); Immature Granulocyte Absolute 0.02 K/mm3 (0.00-0.031); Immature Granulocyte Percent A 0.3 % (0-0.5); Lymphocytes Absolute Auto 3.32 K/mm3 (0.9-3.2); Lymphocytes Percent Auto 43.9 % (18.3-44.2); Mean Corpuscular HGB Conc 31.4 g/dl (32-36); Mean Corpuscular Hemoglobin 29.8 pg (26-34); Mean Corpuscular Volume 94.7 fl (80-100); Mean Platelet Volume 8.6 fl (7.4-10.4); Monocytes Absolute Auto 0.7 K/mm3 (0.1-0.6); Monocytes Percent Auto 9.4 % (2.6-8.5); Neutrophils Absolute Auto 3.2 K/mm3 (1.3-6.7); Neutrophils Percent Auto 42.3 % (45.5-73.1); Platelet Count Result 352 k/mm3 (150-375); Red Cell Distribution Width 13.2 % (11.5-14.5); White Blood Count 7.6 K/mm3 (4.5-10.0)
[2024-10-04 12:39] LABS: Alanine Aminotransferase 28 U/L (6-35); Albumin Level 4.5 g/dL (3.5-5.1); Alkaline Phosphatase 79 U/L (38-126); Anion Gap 9 mmol/L (4-12); Aspartate Amino Transferase 35 U/L (14-36); Bilirubin,Total 1.1 mg/dL (0.2-1.3); Blood Urea Nitrogen 23 mg/dL (7-17); Calcium 9.5 mg/dL (8.4-10.2); Carbon Dioxide 30 mmol/L (22-30); Chloride 99 mmol/L (98-107); Cholesterol 266 mg/dL (0-200); Estimated Glomerular Filt Rate > 60; Glucose 93 mg/dL (65-110); HDL Direct 54 mg/dL; Potassium 4.5 mmol/L (3.4-5.0); Sodium 138 mmol/L (137-145); Triglycerides 190 mg/dL (<150)
[2024-10-04 12:50] LABS: LDL Cholesterol Direct 136 mg/dL
[2024-10-04 12:56] LABS: Vitamin D 25 Hydroxy 42.9 ng/mL
[2024-10-04 13:10] LABS: Thyroid Stimulating Hormone 0.824 uIU/mL (0.465-4.680)
[2024-10-04 13:46] LABS: Vitamin B12 > 1000.0 pg/mL (239-931)
--- OUTSIDE RECORDS SUMMARY | 2024-10-04 13:59 | XMS_ITS | Patient Health Summary ---
Author Organization [facility] Address [address] [address] Care Team Providers Care Line Maintainer Section Name Role Phone Palomo Ga DO Primary Care Provider [phone] Note from [facility],non-owned Affiliates and Associated Physician Practices is amultiple site organization consisting of ambulatory clinics and hospital sitesin [place], [place], [place] and [place]. This disclosure is being madepursuant to the Care Everywhere program and may not contain all information available regarding this patient. Last updated 18.[facility] Allergies No known active allergies Medications * Be aware that medications may not be up to date on this document. Alwaysverify current medications with the patient. * prednisoLONE acetate (PRED FORTE) 1 % ophthalmic suspension(Started 09/22/2018) Instill 1 drop into left eye 2 times daily 11 refills remaining * dexAMETHasone sodium phosphate (Decadron) 0.1 % ophthalmic solution(Started 04/03/2023) Instill 1 (one) drop into left eye 2 times daily 11 refills by 04/02/2024 Active Problems Problem Noted Date Diagnosed Date History of corneal transplant 09/12/2017 Generalized anxiety disorder 05/11/2015 Osteoarthritis 04/11/2014 Immunizations * TDAP (7yrs+)(Given 04/11/2014) Social History Tobacco Use Types Packs/Day Years Used Date Smoking Tobacco: Never Smokeless Tobacco: Never Alcohol Use Standard Drinks/Week Comments Yes 0 (1 standard drink = 0.6 oz pur e alcohol) Sex and Gender Information Value Date Recorded Sex Assigned at Not on file Gender Identity Not on file Sexual Orientation Not on file Last Filed Vital Signs Vital Sign Reading Time Taken Comments Blood Pressure 147/93 02/19/2018 1:20 PM CDT Pulse 76 02/19/2018 1:20 PM CDT Temperature 36.8 C (98.3 F) 02/19/2018 1:20 PM CDT Respiratory Rate 16 02/19/2018 1:20 PM CDT Oxygen Saturation 95% 02/19/2018 1:10 PM CDT Inhaled Oxygen Concentration 21% 02/19/2018 9 :46 AM CDT Weight 111.5 kg (245 lb 12.8 oz) 02/19/2018 9:46 AM CDT Height 152.4 cm (5') 02/19/2018 9:46 AM CDT Body Mass Index 48 02/19/2018 9:46 AM CDT Medical Devices Implanted Type Area Oracle Security Consultant Device Identifier Shelf Expiration Date Model / Serial / Lot Lens Iol 0 D +9.5 Glen Mod L [employer] [facility] - [id number] Implanted:Qty: 1 on 02/19/2018 by Freddie Jorge MD at [facility] Left: Eye [employer] 10/25/2021 [id number].095 / [id number] / Procedures * EXTRACTION CATARACT WITH INSERTION LENS(Performed 02/19/2018) Performed for Nuclear senile cataract, left * OPH EYE ULTRASOUND SLU(Performed 11/06/2017) Performed for History of corneal transplant, Blurred vision, bilateral * CULTURE AEROBIC(Performed 08/04/2014) * PATHOLOGY TISSUE(Performed 08/04/2014) Results * OPH EYE ULTRASOUND SLU (11/06/2017 12:00 AM CDT) Anatomical Region Laterality Modality Other 11/06/2017 Freddie Jorge MD OPHTHALMOLOGY SERVIC ES ORDERABLES * CULTURE AEROBIC (08/04/2014 6:46 PM METER MAKER) Culture Aerobic No Growth at 1 week [facility] Gram Stain [facility] Comment:no Gram stain - thio broth only Cornea 08/04/2014 6:46 PM METER MAKER 08/04/2014 6:46 PM METER MAKER Narrative [facility] - 08/11/2014 12:05 PM METER MAKER Donor cornea ring Specimen Type->Cornea Gram Stains are routinely screened for the presence of Polymorphonuclear Cells. Freddie Jorge MD LAB - MICROBIOLOGY O RDERABLES [facility] [address] [place] [address], [facility] [phone] * PATHOLOGY TISSUE (08/04/2014 11:20 AM METER MAKER) Surgical Pathology Tissue CLINICAL HISTORY: Corneal scar, keratitis. OPERATIVE PROCEDURE: Penetrating keratoplasty corneal transplant full thickness. FINAL DIAGNOSIS: CORNEA, LEFT, KERATOPLASTY: - FIBROSIS GROSS DESCRIPTION: The specimen is received fixed in formalin, labeled with the patient's name Branscum, Isabel and cornea , and consists of two specimens, each measuring 0.4 x 0.4 cm and 0.3 x 0.3 cm, semi-translucent disc-shaped specimens. They are serially sectioned and submitted in toto in cassette A1. MN/edk MICROSCOPIC DESCRIPTION: Sections show a fibrotic, irregular cornea with variable surface epithelium, fibrosis, cystic degenerative change of the corneal stroma and loss of endothelial cells. Descemet's membrane is accentuated on PAS stain. No organisms are seen on H&E or PAS. MH/edk The performance characteristics of all immunohistochemical and indirect immunofluorescence stains (if any) cited in this report were determined by the [facility] Laboratory of [facility]. Some of these tests were developed by our own laboratory and have not been cleared or approved by the US Food and Drug Administration. The FDA does not require this test to go through premarket FDA review. These tests are used for clinical purposes. They should not be regarded as investigational or for research. This laboratory is certified under the Clinical Laboratory Improvement Amendments (CLIA) as qualified to perform high complexity clinical laboratory testing. This case has been personally reviewed and interpreted by the attending (teaching) pathologist. Final Diagnosis performed by Brooke Sheikh M.D. Electronically signed 08/09/2014 [facility] Other (qualifier value) 08/04/2014 11:20 AM METER MAKER 08/04/2014 6:46 PM METER MAKER Narrative [facility] - 08/09/2014 7:43 PM METER MAKER PRE-OP DIAGNOSIS: corneal scar, keratitis OPERATIVE PROCEDURE / FINDINGS: Procedure(s) with comments: PENETRATING KERATOPLASTY CORNEAL TRANSPLANT - full thickness Collection Date->08/04/14 Collection Time->11:20 AM Specimen A->Cornea left eye Freddie Jorge MD LAB - PATHOLOGY/CYTO LOGY ORDERABLES Performing Organization Address City/State/[facility] Co de Phone Number [facility] Care Teams Line Maintainer Section Relationship Specialty Start Date End Date Palomo Ga DO PCP - General 02/20/18
--- OUTSIDE RECORDS SUMMARY | 2024-10-04 13:59 | XMS_ITS | Clinical Summary ---
Author Organization [facility] Address [address] [place] [address] Care Team Providers Care Quilter Fixer Name Role Phone Palomo Ga DO Primary Care Provider [phone] Source Comments [facility],non-owned Affiliates and Associated Physician Practices is amultiple site organization consisting of ambulatory clinics and hospital sitesin [place], [place], [place] and [place]. This disclosure is being madepursuant to the Care Everywhere program and may not contain all information available regarding this patient. Last updated 18.[facility] Allergies No known active allergies Medications * Be aware that medications may not be up to date on this document. Alwaysverify current medications with the patient. Medication Sig Dispensed Refills Start Date End Date Status prednisoLONE acetate (PRED FORTE) 1 % ophthalmic suspension Instill 1 drop into left eye 2 times daily 5 mL 11 09/22/2018 Active dexAMETHasone sodium phosphate (Decadron) 0.1 % ophthalmic solution Instill 1 (one) drop into left eye 2 times daily 5 mL 11 04/03/2023 Active Active Problems Problem Noted Date Diagnosed Date History of corneal transplant 09/12/2017 Generalized anxiety disorder 05/11/2015 Osteoarthritis 04/11/2014 Immunizations Name Administration Dates Next Due TDAP (7yrs+) 04/11/2014 Family History Medical History Relation Name Comments Cancer Father Lung cancer wit h mets to brain Diabetes Maternal Grandmother Heart Disease Maternal Grandmother Emphysema Mother Relation Name Status Comments Father Maternal Grandmother Mother Social History Tobacco Use Types Packs/Day Years [...] Mass Index 48 02/19/2018 9:46 AM CDT Plan of Treatment Health Maintenance Due Date Last Done Comments COLOGUARD (AGES 45-75) - COL ON CA SCREENING 1960 COLON MONITORING 1960 COLONOSCOPY - COLON CA SCREENING 1960 CT COLONOGRAPHY - COLON CA SCREENING 1960 Colorectal Cancer Screening 1960 FIT - COLON CA SCREENING 1960 FLEX SIG - COLON CA SCREENING 1960 LIPID TESTING 1960 MAMMOGRAM 1960 PAP SMEAR 1960 HIV SCREENING 1975 HEPATITIS C SCREENING 04/29/1978 PNEUMOCOCCAL VACCINE 50+ (1 of 1 - PCV) 2010 ZOSTER VACCINE (1 of 2) 2010 SCREENING FOR DIABETES 02/20/2018 Respiratory Syncytial Virus (RSV) Vaccine Pt: or over 60 yrs (1 - Risk 60-74 years 1-dose series) 2020 COVID-19 VACCINE ( - 2023-2 5 season) 2024 INFLUENZA VACCINE (#1) 2024 DTAP/TDAP/TD VACCINES (2 - T d or Tdap) 04/11/2024 04/11/2014 DEPRESSION SCREENING 07/28/2024 HEPATITIS B VACCINE Aged Out No longe r eligible based on patient's age to complete this topic HIB VACCINE Aged Out No longer eligi ble based on patient's age to complete this topic HPV VACCINE Aged Out No longer eligi ble based on patient's age to complete this topic MENINGOCOCCAL (Group B) VACCINE Aged Out No longer eligible based on patient's age to complete this topic MENINGOCOCCAL VACCINE Aged Out No libby abraham eligible based on patient's age to complete this topic Medical Devices Implanted Type Area Security Shift Supervisor Device Identifier Shelf Expiration Date Model / Serial / Lot Lens Iol 0 D +9.5 Glen [employer] [facility] - [id number] Implanted:Qty: 1 on 02/19/2018 by Freddie Jorge MD at [facility] Left: Eye [employer] 10/25/2021 SN60WF.095 / [id number] / Advance Directives * Full Code (Latest Code Status on File) Date Activated Date Inactivated Comments 02/19/2018 1:10 PM 02/19/2018 2:55 PM * Full Code Date Activated Date Inactivated Comments 02/19/2018 9:30 AM 02/19/2018 1:10 PM * Full Code Date Activated Date Inactivated Comments 02/18/2018 1:43 PM 02/19/2018 9:30 AM Care Teams Quilter Fixer Relationship Specialty Start Date End Date Palomo Ga DO PCP - General 02/20/18
--- OUTSIDE RECORDS SUMMARY | 2024-10-04 13:59 | XMS_ITS | Referral Summary ---
Author Organization [facility] Address [address] [place] [address] Care Team Providers Care Emergency Service Restorer Name Role Phone Palomo Ga DO Primary Care Provider [phone] Source Comments [facility],non-owned Affiliates and Associated Physician Practices is amultiple site organization consisting of ambulatory clinics and hospital sitesin [place], [place], [place] and [place]. This disclosure is being madepursuant to the Care Everywhere program and may not contain all informatio navailable regarding this patient. Last updated 18.[facility] Allergies No known active allergies Medications * [...] Administration Dates Next Due TDAP (7yrs+) 04/11/2014 Social History Tobacco Use Types Packs/Day Years [...] Mass Index 48 02/19/2018 9:46 AM CDT Functional Status Functional Status Response Date of Assess ment Is person deaf or have serious hearing difficult y? No 02/19/2018 Is person blind or have serious difficulty seein g? No 02/19/2018 Does person have serious dif ficulty walking/climbing stairs? No 02/19/2018 Does person have difficulty dressing/bathing? No 02/19/2018 Does person have difficulty doing errands alone? No 02/19/2018 Cognitive Status Response Date of Assessm ent Does person have difficulty concentrating/remembering/making decisions? No 02/19/2018 Plan of Treatment Not on file Medical Devices Implanted Type Area Linen Folder Device Identifier Shelf Expiration Date Model / Serial / Lot Lens Iol 0 D +9.5 Glen [employer] L [employer] [facility] - [id number] Implanted:Qty: 1 on 02/19/2018 by Freddie Jorge MD at [facility] Left: Eye [employer] 10/25/2021 SN60WF.095 / [id number] / Advance Directives * Full Code (Latest Code Status on File) Date Activated Date Inactivated Comments 02/19/2018 1:10 PM 02/19/2018 2:55 PM * Full Code Date Activated Date Inactivated Comments 02/19/2018 9:30 AM 02/19/2018 1:10 PM * Full Code Date Activated Date Inactivated Comments 02/18/2018 1:43 PM 02/19/2018 9:30 AM Care Teams Emergency Service Restorer Relationship Specialty Start Date End Date Palomo Ga DO PCP - General 02/20/18
== END 2024-10-04 12:06 | disposition home or self-care (01) ==
LOC: ANHLAB 12:06
PROVIDERS: PCP Internal Medicine; Visit Provider Clinical Nurse Specialist
DX: E55.9 Vitamin D deficiency, unspecified (principal); E53.8 Deficiency of other specified B group vitamins; I10 Essential (primary) hypertension; E78.5 Hyperlipidemia, unspecified; L40.50 Arthropathic psoriasis, unspecified; F41.9 Anxiety disorder, unspecified
CPT/HCPCS: 36415; 80053; 80061; 82306; 82607; 84443; 85025